=== PATIENT | female | born 1950 | race Caucasian/White ===

== ENCOUNTER 2017-06-17 20:44 | Emergency (ER) | payer OTHER ==
[2017-06-17 20:54] VITALS: BP 150/84; PULSE 82; TEMP 98.7; BMI 42.0
[2017-06-17] MEDS ORDERED: DIPHTH,PERTUSS(ACELL),TET 0.5 ML DISP.SYRIN IM ONE (21:15)
--- NOTE | 2017-06-17 21:22 | PDOC ---
History of Present Illness - General Chief Complaint: Laceration Stated Complaint: LACERATION Time Seen by Provider: 06/17/17 21:15 History Source: Patient Exam Limitations: No Limitations - History of Present Illness Initial Comments: 06/17/17 21:16 67-year-old female brought in for evaluation of laceration to her left third digit. Patient states was at a libertarian try and open up a can when the top of the can cut her finger. Patient states is not up-to-date on tetanus and states the diabetic. Patient has no other complaints at this time. Timing/Duration: reports: just prior to arrival Severity: Yes: mild Location: reports: hands Respiratory Risk Factors: reports: no cause identified Associated Symptoms: reports: other (laceration llefteft 3rd third digitfinger) Past History - Travel Traveled outside of the country in the last 30 days: No Close contact w/someone who was outside of country & ill: No - Past Medical History Allergies/Adverse Reactions: Allergies Allergy/AdvReac Type Severity Reaction Status Date / Time No Known Allergies Allergy Verified 06/17/17 20:54 Other medical history: denies - Immunization History Immunization Up to Date: Yes - Suicide/Smoking/Psychosocial Hx Smoking History: Never smoked Hx Alcohol Use: No Drug/Substance Use Hx: No Patient Lives Alone: No Lives with/in: spouse/SO Review of Systems - Review of Systems Able to Perform ROS?: Yes Constitutional: No: Symptoms Reported Musculoskeletal: No: Symptoms Reported Integumentary: Yes: See HPI Neurological: No: Symptoms reported *Physical Exam - Vital Signs Last Vital Signs Temp Pulse Resp BP Pulse Ox 98.7 F 82 20 150/84 94 L 06/17/17 20:47 06/17/17 20:47 06/17/17 20:47 06/17/17 20:47 06/17/17 20:47 - Physical Exam General Appearance: Yes: Nourished, Appropriately Dressed. No: Apparent Distress Integumentary: positive: Other (noted 1 cm linear laceration over the left third finger at the MCP joint dorsally.) Neurologic: positive: Motor Strength 5/5 (full mobility of left third digit) Procedures - Laceration/Wound Repair Left Finger Wound Length: to 2.5 cm Wound's Depth, Shape: superficial, linear Irrigated w/ Saline: Yes Betadine Prep: Yes Wound Repaired With: Steri-strips, Dermabond Sling Applied: Yes (finger) Medical Decision Making - Medical Decision Making 06/17/17 21:18 Patient laceration to left third digit. Patient had area cleansed with saline Steri-Strips and Dermabond applied. Patient also ordered for tetanus. *DC/Admit/Observation/Transfer Diagnosis at time of Disposition: Laceration of finger of left hand Qualifiers: Encounter type: initial encounter Finger: middle finger Damage to nail status: without damage Foreign body presence: without foreign body Qualified Code(s): S61.213A - Laceration without foreign body of left middle finger without damage to nail, initial encounter; S61.213A - Laceration without foreign body of left middle finger without damage to nail, initial encounter - Discharge Dispostion Disposition: HOME Condition at time of disposition: Good - Patient Instructions Printed Discharge Instructions: DI for Laceration Repair, DI for Laceration Repair With Dermabond Additional Instructions: Keep area clean and dry but check for infection including redness and swelling tomorrow night. If noted please return to the nearest ED as this may require antibiotics. Please allow steristrip and glue to fall off on its own
== END 2017-06-17 21:34 | disposition home or self-care (01) ==
LOC: JERFT 20:44
PROC: 0HQGXZZ Repair Left Hand Skin, External Approach (ICD-10-PCS; principal; 2017-06-17)
DX: S61.213A Laceration without foreign body of left middle finger without damage to nail, initial encounter (principal); W26.8XXA Contact with other sharp object(s), not elsewhere classified, initial encounter; Y93.89 Activity, other specified; Y92.89 Other specified places as the place of occurrence of the external cause; Y99.8 Other external cause status
CPT/HCPCS: 12001-25; 90715; 99281-25

== ENCOUNTER 2017-10-12 17:32 | Emergency (ER) | payer OTHER ==
[2017-10-12 17:38] VITALS: BMI 41.5
[2017-10-12] MEDS ORDERED: ACETAMINOPHEN 325 MG TABLET (FP) PO ONE (17:41)
[2017-10-12] MEDS ORDERED: SODIUM CHLORIDE 1,000 ML IV ONE (17:43)
--- NOTE | 2017-10-12 17:45 | PDOC ---
History of Present Illness - General History Source: Patient Exam Limitations: No Limitations - History of Present Illness Initial Comments: 10/12/17 18:36 The patient is a 67 year old female with a past significant medical with asthma , diabetes, cardiac ablation, and cardiac stents who presents to the emergency department with a subjective fever, productive cough (yellow sputum), sore throat, and ear ache since two days ago. She reports epigastric pain associated with frequent episodes of vomiting. She also states recent contact at home from her who experienced similar symptoms. She states her epigastric pain is 7 out of 10 in severity. She reports coughing only with deep inspiration. She has been unable to keep any food or fluids down. She reports a recent visit to a [facility]. She was given an amoxicillin, prednisone and robitussin with mild alleviation. She states that she has had frequent episodes of vomiting (non-bilious, non-bloody). She denies any shortness of breath, hemoptysis, leg swelling, and lightheadedness. She denies any chest pain, palpitations, headache, and abdominal pain. She reports a flu vaccine this year. <Loree Sepulveda - Last Filed: 10/12/17 20:16> <Froylan Nolan - Last Filed: 10/13/17 16:01> - General Chief Complaint: Cold Symptoms Stated Complaint: cough,fever Time Seen by Provider: 10/12/17 17:41 Past History <Loree Sepulveda - Last Filed: 10/12/17 20:16> - Past Medical History COPD: No Diabetes: Yes HTN: Yes Hypercholesterolemia: Yes - Surgical History Cardiac Surgery: Yes (3stents) Cholecystectomy: Yes - Immunization History Immunization Up to Date: Yes - Suicide/Smoking/Psychosocial Hx Smoking History: Never smoked Hx Alcohol Use: No Drug/Substance Use Hx: No Substance Use Type: None <Froylan Nolan - Last Filed: 10/13/17 16:01> - Past Medical History Allergies/Adverse Reactions: Allergies Allergy/AdvReac Type Severity Reaction Status Date / Time albuterol Allergy Verified 10/12/17 17:33 codeine Allergy Verified 10/12/17 17:33 Home Medications: Ambulatory Orders Amlodipine Besylate [Norvasc -] 5 mg PO DAILY 10/12/17 Aspirin [ASA -] 81 mg PO DAILY 10/12/17 Budesonide/Formeterol Fumarate [SYMBICORT 160/4.5mcg -] 1 inh PO DAILY 10/12/17 Gabapentin [Neurontin] 100 mg PO DAILY 10/12/17 Insulin Degludec [Tresiba Flextouch U-100] 0 unit SQ DAILY 10/12/17 Insulin Lispro [Humalog] 5 unit SQ DAILY 10/12/17 Oseltamivir Phosphate [Tamiflu -] 75 mg PO BID #10 capsule 10/12/17 Ranitidine HCl [Acid Control] 150 mg PO DAILY 10/12/17 Sertraline HCl 50 mg PO DAILY 10/12/17 Simvastatin [Zocor -] 40 mg PO HS 10/12/17 Sitagliptin Phosphate [Januvia] 100 mg PO DAILY 10/12/17 Zolpidem Tartrate [Ambien] 10 mg PO HS 10/12/17 Review of Systems - Review of Systems Able to Perform ROS?: Yes Comments:: 10/12/17 18:45 Constitutional - +chills, fever, generalized weakness HEENT: +sore throat, ear ache, productive cough denies vision changes Respiratory: +productive cough Denies sob, hemoptysis Cardiac: denies chest pain, palpitations, light headedness, leg swelling Abd/GI: +vomiting, denies abd pain, nausea, blood per rectum, melena, diarrhea : denies dysuria, frequency, discharge Musculskelatal - denies back pain, joint swelling skin - denies bruising, erythema, rash neurological: denies headache, numbness, focal weakness, tingling, ataxia, weakness hematologic: denies anemia, easy bruising, easy bleeding All Other Systems: Reviewed and Negative <Loree Sepulveda - Last Filed: 10/12/17 20:16> *Physical Exam - Vital Signs Last Vital Signs Temp Pulse Resp BP Pulse Ox 100.3 F H 124 H 20 135/110 98 10/12/17 17:33 10/12/17 17:33 10/12/17 17:33 10/12/17 17:33 10/12/17 17:33 <Loree Sepulveda - Last Filed: 10/12/17 20:16> - Vital Signs Last Vital Signs Temp Pulse Resp BP Pulse Ox 100.3 F H 124 H 20 135/110 98 10/12/17 17:33 10/12/17 17:33 10/12/17 17:33 10/12/17 17:33 10/12/17 17:33 <Froylan Nolan - Last Filed: 10/13/17 16:01> ED Treatment Course - LABORATORY CBC & Chemistry Diagram: 10/12/17 17:53 10/12/17 17:53 - ADDITIONAL ORDERS Additional order review: Laboratory Results 10/12/17 17:53 Sodium 128 L Potassium 4.1 Chloride 94 L Carbon Dioxide 25 Anion Gap 9 BUN 15 Creatinine 0.9 Creat Clearance w eGFR > 60 Random Glucose 315 H* Calcium 9.1 AST 25 ALT 21 Alkaline Phosphatase 74 Total Protein 8.4 H Albumin 3.5 10/12/17 17:53 RBC 4.98 MCV 85.7 MCHC 34.5 RDW 13.6 MPV 8.7 Neutrophils % 76.1 Lymphocytes % 13.2 Monocytes % 10.1 Eosinophils % 0.1 Basophils % 0.5 - RADIOLOGY Radiograph Interpretation: 10/12/17 20:16 CXR wet read reported by me. No effusions or infiltrates noted. - Medications Given in the ED: ED Medications Discontinued Medications Generic Name Dose Route Start Last Admin Trade Name Freq PRN Reason Stop Dose Admin Acetaminophen 650 mg 10/12/17 17:41 10/12/17 18:10 Tylenol - PO 10/12/17 17:42 Not Given ONCE ONE Acetaminophen 1,000 mg 10/12/17 18:06 10/12/17 18:10 Ofirmev Injection - IVPB 10/12/17 18:07 1,000 mg ONCE ONE Administration Ondansetron HCl 4 mg 10/12/17 18:06 10/12/17 18:10 Zofran Injection IVPB 10/12/17 18:07 4 mg ONCE ONE Administration <Loree Sepulveda - Last Filed: 10/12/17 20:16> - LABORATORY CBC & Chemistry Diagram: 10/12/17 17:53 10/12/17 17:53 - RADIOLOGY Radiology Studies Ordered: Category Date Time Status CHEST X-RAY PORTABLE* [RAD] Stat Radiology 10/12/17 17:42 Ordered <Froylan Nolan - Last Filed: 10/13/17 16:01> Medical Decision Making - Medical Decision Making 10/12/17 18:14 67y F hx of asthma, cAD s/p stents x 3 presents with cough/fever/chills, n/v. Pt went to her PMD yesterday who was given rx for an antibiotiic. Pt endorses nasal congestion/sore throat. She has been not felt significantly imrpoved, endorses some mid epgiastric abdomlilnal pain, chest pain with coughing productive of yellowish sputum w/o hemoptysis. No leg swelling, recent travel. pt endorses vomiting and epigastric pain. also had similar symptoms. HR noted elevated to 120s, suspect due to fever ddx includes flu vs pna will obtain blood work tylenol for fever fluids will reassess A portion of this note was documented by scribe services under my direction. I have reviewed the details of the note, within reason, and agree with the documentation with the following case summary and management plan written by me 10/12/17 19:28 Case signed out to Dr. Mederos to follow-up with results and reassess the patient <Froylan Nolan - Last Filed: 10/13/17 16:01> *DC/Admit/Observation/Transfer - Attestations Scribe Attestion: 10/12/17 18:42 Documentation prepared by Loree Sepulveda, acting as director of medical staff services for Froylan Nolan MD. <Loree Sepulveda - Last Filed: 10/12/17 20:16> <Froylan Nolan - Last Filed: 10/13/17 16:01> Diagnosis at time of Disposition: Acute viral syndrome - Discharge Dispostion Disposition: HOME Condition at time of disposition: Stable - Prescriptions Prescriptions: Oseltamivir Phosphate [Tamiflu -] 75 mg PO BID #10 capsule - Patient Instructions Printed Discharge Instructions: Influenza Additional Instructions: Stop amoxicillin Tamiflu 75 mg twice a day for 5 days Continue to rest/drink plenty of fluids Tylenol as needed for fever/headache/bodyaches Return to ER if you have persistent high fever/difficulty breathing/vomiting Follow-up with your doctor within the next 5-7 days
[2017-10-12] MEDS ORDERED: ONDANSETRON 4 MG/2 ML VIAL ONE (18:05)
[2017-10-12] MEDS ORDERED: ACETAMINOPHEN INJECTION 100 ML IVPB ONE (18:06)
[2017-10-12] MEDS ORDERED: ACETAMINOPHEN 1000 MG/100 ML VIAL (NON FORMULARY) IVPB ONE (18:06)
[2017-10-12] MEDS ORDERED: ONDANSETRON 4 MG/2 ML VIAL IVPB ONE (18:06)
[2017-10-12 18:12] LABS: BASO % 0.5 % (0-2.0); EOS % 0.1 % (0-4.5); HEMATOCRIT 42.7 % (32.4-45.2); HEMOGLOBIN 14.7 GM/dl (10.7-15.3); LYMPH % 13.2 % (8-40); MCH 29.5 pg (25.7-33.7); MCHC 34.5 g/dl (32.0-36.0); MEAN CELL VOLUME 85.7 fl (80-96); MEAN PLT VOLUME 8.7 fl (7.5-11.1); MONO % 10.1 % (3.8-10.2); NEUT % 76.1 % (42.8-82.8); PLATELET COUNT 186 K/MM3 (134-434); RBC 4.98 M/mm3 (3.60-5.2); RDW 13.6 % (11.6-15.6); WHITE BLOOD COUNT 6.6 K/mm3 (4.0-10.8)
[2017-10-12 18:22] LABS: ALBUMIN 3.5 g/dl (3.5-5.0); ALK PHOS 74 U/L (32-92); ANION GAP 9 (8-16); BLOOD UREA NITROGEN 15 mg/dl (7-18); CALCIUM 9.1 mg/dl (8.4-10.2); CHLORIDE 94 mmol/L (98-107); CO2 25 mmol/L (22-28); CREATININE 0.9 mg/dl (0.6-1.3); POTASSIUM 4.1 mmol/L (3.5-5.1); SGOT/AST 25 U/L (10-42); SGPT/ALT 21 U/L (10-40); SODIUM 128 mmol/L (136-145); TOT PROT 8.4 g/dl (6.4-8.3)
[2017-10-12 18:27] LABS: GLUCOSE,RANDOM 315 mg/dl (74-106)
[2017-10-12 18:48] LABS: BILIRUBIN,TOTAL < 0.5 mg/dl (0.2-1.0)
[2017-10-12 19:03] LABS: ACTIVATED PTT 28.7 SECONDS (24.0-38.9)
[2017-10-12 19:08] LABS: INR 1.18 (0.82-1.09); PROTHROMBIN TIME (PATIENT) 13.2 SEC (10.2-13.0)
[2017-10-12 19:13] VITALS: BP 105/65; PULSE 101; TEMP 100.7
--- NOTE | 2017-10-12 20:13 | PDOC ---
*Physical Exam - Vital Signs Last Vital Signs Temp Pulse Resp BP Pulse Ox 100.7 F H 101 H 19 105/65 96 10/12/17 19:12 10/12/17 19:12 10/12/17 19:12 10/12/17 19:12 10/12/17 19:12 ED Treatment Course - LABORATORY CBC & Chemistry Diagram: 10/12/17 17:53 10/12/17 17:53 - ADDITIONAL ORDERS Additional order review: Laboratory Results 10/12/17 10/12/17 10/12/17 18:50 18:36 18:36 PT with INR INR PTT (Actin FS) Sodium Potassium Chloride Carbon Dioxide Anion Gap BUN Creatinine Creat Clearance w eGFR Random Glucose Calcium Total Bilirubin AST ALT Alkaline Phosphatase Creatine Kinase 171 Creatine Kinase Index 0.5 CK-MB (CK-2) 0.9 Troponin I 0.04 Cancelled Total Protein Albumin Lipase 164 10/12/17 10/12/17 18:36 17:53 PT with INR 13.2 H INR 1.18 PTT (Actin FS) 28.7 Sodium 128 L Potassium 4.1 Chloride 94 L Carbon Dioxide 25 Anion Gap 9 BUN 15 Creatinine 0.9 Creat Clearance w eGFR > 60 Random Glucose 315 H* Calcium 9.1 Total Bilirubin < 0.5 AST 25 ALT 21 Alkaline Phosphatase 74 Creatine Kinase Creatine Kinase Index CK-MB (CK-2) Troponin I Total Protein 8.4 H Albumin 3.5 Lipase 10/12/17 17:53 RBC 4.98 MCV 85.7 MCHC 34.5 RDW 13.6 MPV 8.7 Neutrophils % 76.1 Lymphocytes % 13.2 Monocytes % 10.1 Eosinophils % 0.1 Basophils % 0.5 - Medications Given in the ED: ED Medications Discontinued Medications Generic Name Dose Route Start Last Admin Trade Name Freq PRN Reason Stop Dose Admin Acetaminophen 650 mg 10/12/17 17:41 10/12/17 18:10 Tylenol - PO 10/12/17 17:42 Not Given ONCE ONE Acetaminophen 1,000 mg 10/12/17 18:06 10/12/17 18:10 Ofirmev Injection - IVPB 10/12/17 18:07 1,000 mg ONCE ONE Administration Sodium Chloride 1,000 mls @ 1,000 mls/hr 10/12/17 17:43 10/12/17 17:56 Normal Saline - IV 10/12/17 18:42 1,000 mls/hr .Q1H ONE Administration Ondansetron HCl 4 mg 10/12/17 18:06 10/12/17 18:10 Zofran Injection IVPB 10/12/17 18:07 4 mg ONCE ONE Administration Progress Note - Progress Note Progress Note: Care of this patient received from . The patient has had a 2 day history of sore throat/headache/subjective fever/ nonproductive cough. She has had close contact (family members) who have had influenza within the last week. Chest x-ray shows no clear evidence of infiltrate or other acute process Laboratory evaluation shows no elevation of the white blood cell count; the rest of the laboratory evaluation shows moderate elevation of random glucose value but otherwise essentially unremarkable. Urinalysis shows no clear evidence of UTI. Clinical presentation most consistent with influenza. The patient will be started on Tamiflu 75 mg twice a day for 5 days. The first dose will be given here in the emergency room. Patient should continue drinking plenty of fluids and resting. She had been prescribed amoxicillin previously which she should discontinue. She should return to the emergency room if she has persistent high fever, vomiting or difficulty breathing *DC/Admit/Observation/Transfer Diagnosis at time of Disposition: Acute viral syndrome - Discharge Dispostion Disposition: HOME Condition at time of disposition: Stable - Prescriptions Prescriptions: Oseltamivir Phosphate [Tamiflu -] 75 mg PO BID #10 capsule - Referrals - Patient Instructions Printed Discharge Instructions: Influenza Additional Instructions: Stop amoxicillin Tamiflu 75 mg twice a day for 5 days Continue to rest/drink plenty of fluids Tylenol as needed for fever/headache/bodyaches Return to ER if you have persistent high fever/difficulty breathing/vomiting Follow-up with your doctor within the next 5-7 days - Post Discharge Activity
[2017-10-12] MEDS ORDERED: OSELTAMIVIR PHOSPHATE 75 MG CAPSULE PO ONE (20:20)
[2017-10-12] MEDS ORDERED: OSELTAMIVIR PHOSPHATE 75 MG CAPSULE ONE (20:28)
[2017-10-12 20:36] LABS: PH,URINE 5.5 (4.5-8); URINE APPEARANCE Clear; URINE BILIRUBIN Negative (NEGATIVE); URINE BLOOD Trace-intact (NEGATIVE); URINE COLOR YELLOW; URINE GLUCOSE (UA) 2+ (NEGATIVE); URINE KETONE Negative (NEGATIVE); URINE LEUK ESTERASE Negative (NEGATIVE); URINE NITRITE Negative (NEGATIVE); URINE PROTEIN 1+ (NEGATIVE); URINE UROBILINOGEN 0.2 (0.2-1.0)
[2017-10-12 22:11] LABS: URINE BACTERIA FEW /hpf (NEGATIVE); URINE WBC 0-2 (0-5)
--- NOTE | 2017-10-15 08:14 | EKG ---
Test Reason : Blood Pressure : / mmHG Vent. Rate : 120 BPM Atrial Rate : 120 BPM P-R Int : 164 ms QRS Dur : 068 ms QT Int : 316 ms P-R-T Axes : 051 005 030 degrees QTc Int : 446 ms SINUS TACHYCARDIA LOW VOLTAGE QRS CANNOT RULE OUT SEPTAL INFARCT , AGE UNDETERMINED ABNORMAL ECG NO PREVIOUS ECGS AVAILABLE Confirmed by SARAN VALENTIN MD ([id number]) on 10/15/2017 8:14:38 AM Referred By: MD RUIZ Confirmed By:SARAN VALENTIN MD
== END 2017-10-12 20:33 | disposition home or self-care (01) ==
LOC: FER 17:32
PROC: 3E033NZ Introduction of Analgesics, Hypnotics, Sedatives into Peripheral Vein, Percutaneous Approach (ICD-10-PCS; principal; 2017-10-12)
PROC: 3E033GC Introduction of Other Therapeutic Substance into Peripheral Vein, Percutaneous Approach (ICD-10-PCS; 2017-10-12)
PROC: 3E0337Z Introduction of Electrolytic and Water Balance Substance into Peripheral Vein, Percutaneous Approach (ICD-10-PCS; 2017-10-12)
DX: B34.9 Viral infection, unspecified (principal); J45.909 Unspecified asthma, uncomplicated; E11.9 Type 2 diabetes mellitus without complications; Z95.5 Presence of coronary angioplasty implant and graft; I10 Essential (primary) hypertension; E78.00 Pure hypercholesterolemia, unspecified; Z79.4 Long term (current) use of insulin
CPT/HCPCS: 36415; 71045-TC-FY; 80053; 81003; 81015; 82550; 82553; 83605; 83690; 84484; 85025; 85610; 85730; 87040; 87086; 87186; 93005; 96361; 96374; 96375; 99284-25

== ENCOUNTER 2017-10-13 19:06 | Observation (INO) | payer OTHER ==
[2017-10-13 19:21] VITALS: BMI 40.1
--- NOTE | 2017-10-13 19:32 | PDOC ---
History of Present Illness - General History Source: Patient Exam Limitations: No Limitations - History of Present Illness Initial Comments: 10/13/17 20:34 The patient is a 67 year old female with a significant PMH of asthma, IDDM, cardiac ablation, HTN, and HLD who presents to the emergency department with subjective fever, cough productive of blood streaked yellow sputum, and generalized body aches for the past two days. The patient reports she was seen at [facility] two days ago and was discharged on amoxicillin. The patient states she took the amoxicillin two days ago but stopped after experiencing multiple episodes of non-bloody, non-bilious vomit and headaches. The patient notes was seen yesterday at [facility], given fluids, had blood work that showed bacteremia and was told to come to the ER today for further evaluation. The patient states she took Tylenol last night with minimal relief of her symptoms. The patient denies chest pain, shortness of breath, and dizziness. Denies chills, vomit, diarrhea and constipation. Denies dysuria, frequency, urgency and hematuria. Allergies: albuterol, codeine Past surgical history: Cholecystectomy, hysterectomy, 3 stents placed. Social history: No reported alcohol, drug, or cigarette use. <Karolyn Burns - Last Filed: 10/13/17 23:30> <Shelby Wilburn - Last Filed: 10/15/17 03:11> - General Chief Complaint: Revisit, Lab Variance Stated Complaint: PCP ADMIT Time Seen by Provider: 10/13/17 19:31 Past History <Karolyn Burns - Last Filed: 10/13/17 23:30> - Past Medical History COPD: No Diabetes: Yes HTN: Yes Hypercholesterolemia: Yes - Surgical History Cardiac Surgery: Yes (3stents) Cholecystectomy: Yes - Immunization History Immunization Up to Date: Yes - Suicide/Smoking/Psychosocial Hx Smoking History: Never smoked Have you smoked in the past 12 months: No Information on smoking cessation initiated: No Hx Alcohol Use: No Drug/Substance Use Hx: No Substance Use Type: None <Shelby Wilburn - Last Filed: 10/15/17 03:11> - Past Medical History Allergies/Adverse Reactions: Allergies Allergy/AdvReac Type Severity Reaction Status Date / Time albuterol Allergy Verified 10/13/17 19:18 codeine Allergy Verified 10/13/17 19:18 Home Medications: Ambulatory Orders Amlodipine Besylate [Norvasc -] 5 mg PO DAILY 10/12/17 Aspirin [ASA -] 81 mg PO DAILY 10/12/17 Budesonide/Formeterol Fumarate [SYMBICORT 160/4.5mcg -] 1 inh PO DAILY 10/12/17 Insulin Degludec [Tresiba Flextouch U-100] 50 unit SQ HS 10/12/17 Insulin Lispro [Humalog] 5 unit SQ ASDIR 10/12/17 Oseltamivir Phosphate [Tamiflu -] 75 mg PO BID #10 capsule 10/12/17 Ranitidine HCl [Acid Control] 150 mg PO DAILY 10/12/17 Sertraline HCl 50 mg PO DAILY 10/12/17 Simvastatin [Zocor -] 40 mg PO HS 10/12/17 Sitagliptin Phosphate [Januvia] 100 mg PO DAILY 10/12/17 Zolpidem Tartrate [Ambien] 10 mg PO HS 10/12/17 Albuterol Sulfate [Proair Respiclick] 90 mcg IH Q6H PRN 10/14/17 Glimepiride [Amaryl] 4 mg PO DAILY 10/14/17 Review of Systems - Review of Systems Able to Perform ROS?: Yes Comments:: 10/13/17 20:37 GENERAL/CONSTITUTIONAL: (+) Fever. (+)Generalized body aches. No chills. HEAD, EYES, EARS, NOSE AND THROAT: No change in vision. No ear pain or discharge. No sore throat. CARDIOVASCULAR: No chest pain or shortness of breath. RESPIRATORY: (+) Cough productive of blood streaked yellow sputum. No wheezing or hemoptysis. GASTROINTESTINAL: No nausea, vomiting, diarrhea or constipation. GENITOURINARY: No dysuria, frequency, or change in urination. MUSCULOSKELETAL: No joint or muscle swelling or pain. No neck or back pain. SKIN: No rash NEUROLOGIC: No headache, vertigo, loss of consciousness, or change in strength/ sensation. ENDOCRINE: No increased thirst. No abnormal weight change. HEMATOLOGIC/LYMPHATIC: No anemia, easy bleeding, or history of blood clots. ALLERGIC/IMMUNOLOGIC: No hives or skin allergy. <Karolyn Burns - Last Filed: 10/13/17 23:30> *Physical Exam - Vital Signs Last Vital Signs Temp Pulse Resp BP Pulse Ox 99.3 F 98 H 20 121/67 94 L 10/13/17 19:18 10/13/17 19:18 10/13/17 19:18 10/13/17 19:18 10/13/17 19:18 - Physical Exam Comments: 10/13/17 20:41 GENERAL: Awake, alert, and fully oriented, in no acute distress HEAD: No signs of trauma EYES: PERRLA, EOMI, sclera anicteric, conjunctiva clear ENT: (+) Erythematous throat. Auricles normal inspection, hearing grossly normal , nares patent, oropharynx clear without exudates. Moist mucosa NECK: Normal ROM, supple, no lymphadenopathy, JVD, or masses LUNGS: (+) Coarse breath sounds. No wheezes, and no crackles HEART: Regular rate and rhythm, normal S1 and S2, no murmurs, rubs or gallops ABDOMEN: Soft, nontender, normoactive bowel sounds. No guarding, no rebound. No masses EXTREMITIES: Normal range of motion, no edema. No clubbing or cyanosis. No cords, erythema, or tenderness NEUROLOGICAL: Cranial nerves II through XII grossly intact. Normal speech, normal gait SKIN: Warm, Dry, normal turgor, no rashes or lesions noted. <Kraolyn Burns - Last Filed: 10/13/17 23:30> - Vital Signs Last Vital Signs Temp Pulse Resp BP Pulse Ox 99.3 F 98 H 20 121/67 94 L 10/13/17 19:18 10/13/17 19:18 10/13/17 19:18 10/13/17 19:18 10/13/17 19:18 <Shelby Wilburn - Last Filed: 10/15/17 03:11> Heart Score/ECG Review #1 10/13/17 23:13 EKG performed at [20:24] demonstrates rate of [98], rhythm of [Normal Sinus Rhythm]. <Karolyn Burns - Last Filed: 10/13/17 23:30> ED Treatment Course - LABORATORY CBC & Chemistry Diagram: 10/13/17 20:20 10/13/17 20:20 - ADDITIONAL ORDERS Additional order review: 10/13/17 20:20 RBC 4.83 MCV 88.0 MCHC 33.4 RDW 14.3 MPV 8.6 Neutrophils % 49.1 Lymphocytes % 33.0 Monocytes % 16.7 H Eosinophils % 0.2 Basophils % 1.0 - Medications Given in the ED: ED Medications Discontinued Medications Generic Name Dose Route Start Last Admin Trade Name Alon PRN Reason Stop Dose Admin Sodium Chloride 500 ml 10/13/17 19:34 10/13/17 20:25 Normal Saline - IV 10/13/17 19:35 500 ml ONCE ONE Administration <Karolyn Burns - Last Filed: 10/13/17 23:30> - LABORATORY CBC & Chemistry Diagram: 10/14/17 06:00 10/14/17 21:53 <Shelby Wilburn - Last Filed: 10/15/17 03:11> Medical Decision Making - Medical Decision Making 10/15/17 03:06 Pt was asked to return to the ER today, as she had a positive blood culture in the hospital at [facility] and she was called at home and told to go to the ER at [facility]. Pt comes was told at a clinic 2 days ago that she has an infection and she was given amoxicillin (sulbactam?) Pt took one and then she felt unwell so she went to [facility] yesterday. There the doctor guessed that she had flu, so he started her on Tamiflu. Pt comes now and we repeated labs. CXR normal. Positive troponin,m so she will be admitted. <Shelby Wilburn - Last Filed: 10/15/17 03:11> *DC/Admit/Observation/Transfer - Attestations Scribe Attestion: 10/13/17 20:42 Documentation prepared by Karolyn Burns, acting as pesticide use medical coordinator for Shelby Wilburn MD. <Karolyn Burns - Last Filed: 10/13/17 23:30> - Discharge Dispostion Admit: Yes <Shelby Wilburn - Last Filed: 10/15/17 03:11> Diagnosis at time of Disposition: Elevated troponin, Hypoxemia - Discharge Dispostion Condition at time of disposition: Stable
[2017-10-13] MEDS ORDERED: SODIUM CHLORIDE 0.9% 500 ML INFUS.BAG IV ONE (19:34)
[2017-10-13 20:30] LABS: EOS % 0.2 % (0-4.5); HEMATOCRIT 42.5 % (32.4-45.2); HEMOGLOBIN 14.2 GM/dL (10.7-15.3); MCH 29.4 pg (25.7-33.7); MCHC 33.4 g/dl (32.0-36.0); MEAN PLT VOLUME 8.6 fl (7.5-11.1); MONO % 16.7 % (3.8-10.2); NEUT % 49.1 % (42.8-82.8); PLATELET COUNT 173 K/MM3 (134-434); RBC 4.83 M/mm3 (3.60-5.2); RDW 14.3 % (11.6-15.6); WHITE BLOOD COUNT 4.7 K/mm3 (4.0-10.0)
[2017-10-13 20:55] LABS: ALBUMIN 3.3 g/dl (3.4-5.0); ANION GAP 9 (8-16); BILIRUBIN,TOTAL 0.5 mg/dL (0.2-1.0); BLOOD UREA NITROGEN 11 mg/dL (7-18); CALCIUM 8.4 mg/dL (8.5-10.1); CHLORIDE 98 mmol/L (98-107); CO2 24 mmol/L (21-32); GLUCOSE,RANDOM 300 mg/dL (74-106); SGOT/AST 27 U/L (15-37); SGPT/ALT 23 U/L (12-78); SODIUM 131 mmol/L (136-145); TOT PROT 8.2 g/dl (6.4-8.2)
[2017-10-13 20:57] LABS: ALK PHOS 81 U/L (45-117)
[2017-10-13] MEDS ORDERED: ASPIRIN 81 MG CHEWABLE TABLETS PO ONE (21:14)
[2017-10-13] MEDS ORDERED: ASPIRIN 81 MG CHEWABLE TABLETS ONE (21:17)
[2017-10-13 21:25] LABS: URINE APPEARANCE CLEAR; URINE BILIRUBIN NEGATIVE (NEGATIVE); URINE BLOOD NEGATIVE (NEGATIVE); URINE COLOR YELLOW; URINE GLUCOSE (UA) 3+ (NEGATIVE); URINE KETONE NEGATIVE (NEGATIVE); URINE LEUK ESTERASE NEGATIVE (NEGATIVE); URINE NITRITE NEGATIVE (NEGATIVE); URINE UROBILINOGEN NEGATIVE mg/dL (0.2-1.0)
[2017-10-13 21:37] LABS: URINE PROTEIN 1+ (NEGATIVE)
[2017-10-13 21:39] LABS: EPI CELLS RARE /HPF (FEW); URINE MUCUS RARE
[2017-10-14] MEDS: ZOLPIDEM TARTRATE 5 MG TABLET PO PRN ×2 (01:23→22:42)
--- NOTE | 2017-10-14 01:47 | HP ---
CHIEF COMPLAINT: fever, cough, muscle pain PCP: Dr Tra Torres HISTORY OF PRESENT ILLNESS: The pt is a 67 year old female with a PMH of asthma, CAD, s/p 3 stents, last one two years ago, cardiac ablation 2010, HTN, HLD who presented to the hospital complaining of fever, chills, cough, muscle pain that started three days ago (on Sunday). She went to [facility] where she was prescribed Amoxicillin. She developed nausea and vomiting and had to stopped taking that. Yesterday she went to [facility] ED where she was diagnosed with flu and given tamiflu. The pt was asked to come to ED today after obtaining positive results of her blood cultures from [place] visit. She is feeling better today. She is still complaining of cough, bringing up yellow sputum, fever, sore throat. The pt reports chest pain that is associated with coughing and constipation that is chronic. She denies palpitations, dizziness, weakness, dysuria. She states that recently many family members had flu. She is compliant with visiting her PCP and taking medications. ER course was notable for: (1)troponins (2)CXR in [facility], CT chest (3)EKG PAST MEDICAL HISTORY: as above PAST SURGICAL HISTORY: cholecystectomy, hysterectomy, 3 stents Social History: Smoking:no Alcohol:no Drugs:no Family History: Mother:DM, [place] Father; N/A Siblings; all 8 of them have heart disease Allergies albuterol Allergy (Verified 10/13/17 19:18) codeine Allergy (Verified 10/13/17 19:18) HOME MEDICATIONS: Home Medications Medication Instructions Recorded Amlodipine Besylate [Norvasc -] 5 mg PO DAILY 10/12/17 Aspirin [ASA -] 81 mg PO DAILY 10/12/17 Budesonide/Formeterol Fumarate 1 inh PO DAILY 10/12/17 [SYMBICORT 160/4.5mcg -] Gabapentin [Neurontin] 100 mg PO DAILY 10/12/17 Insulin Degludec [Tresiba 0 unit SQ DAILY 10/12/17 Flextouch U-100] Insulin Lispro [Humalog] 5 unit SQ DAILY 10/12/17 Oseltamivir Phosphate [Tamiflu -] 75 mg PO BID #10 capsule 10/12/17 Ranitidine HCl [Acid Control] 150 mg PO DAILY 10/12/17 Sertraline HCl 50 mg PO DAILY 10/12/17 Simvastatin [Zocor -] 40 mg PO HS 10/12/17 Sitagliptin Phosphate [Januvia] 100 mg PO DAILY 10/12/17 Zolpidem Tartrate [Ambien] 10 mg PO HS 10/12/17 REVIEW OF SYSTEMS CONSTITUTIONAL: generalized weakness, malaise, fever, chills Absent: diaphoresis, loss of appetite, weight change HEENT: rhinorrhea, nasal congestion, throat pain, throat swelling, difficulty swallowing,, right ear pain and ringing-not new Absent: mouth swelling, ear pain, eye pain, visual changes CARDIOVASCULAR: chest pain with coughing Absent: syncope, palpitations, irregular heart rate, lightheadedness, peripheral edema RESPIRATORY: wheezing, cough Absent: shortness of breath, dyspnea with exertion, orthopnea, stridor, hemoptysis GASTROINTESTINAL:constipation Absent: abdominal pain, abdominal distension, nausea, vomiting, diarrhea, GENITOURINARY: Absent: dysuria, frequency, urgency, hesitancy, hematuria, flank pain, genital pain MUSCULOSKELETAL: Absent: myalgia, arthralgia, joint swelling, back pain, neck pain SKIN: Absent: rash, itching, pallor ENDOCRINE: Absent: unexplained weight gain, unexplained weight loss, heat intolerance, cold intolerance NEUROLOGIC: Absent: headache, focal weakness or paresthesias, dizziness, unsteady gait, seizure, mental status changes, bladder or bowel incontinence PSYCHIATRIC: Absent: anxiety, depression PHYSICAL EXAMINATION Vital Signs - 24 hr 10/13/17 10/14/17 10/14/17 19:18 01:12 01:19 Temperature 99.3 F 99.2 F Pulse Rate 98 H 87 Respiratory 20 20 20 Rate Blood Pressure 121/67 120/70 O2 Sat by Pulse 94 L 95 95 Oximetry (%) GENERAL: Awake, alert, and fully oriented, in no acute distress. HEAD: Normal with no signs of trauma. EYES: Pupils equal, round and reactive to light, extraocular movements intact, sclera anicteric, conjunctiva clear. No lid lag. EARS, NOSE, THROAT: Ears normal, nares patent, oropharynx clear without exudates. Moist mucous membranes. NECK: Normal range of motion, supple without lymphadenopathy, JVD, or masses. LUNGS: Breath sounds equal, clear to auscultation bilaterally. No wheezes, and no crackles. No accessory muscle use. HEART: Regular rate and rhythm, normal S1 and S2 without murmur, rub or gallop. ABDOMEN: Soft, nontender, not distended, normoactive bowel sounds, no guarding, no rebound, no masses. No hepatomegaly or splenomegaly. MUSCULOSKELETAL: Normal range of motion at all joints. No bony deformities or tenderness. No CVA tenderness. UPPER EXTREMITIES: 2+ pulses, warm, well-perfused. No cyanosis. No clubbing. No peripheral edema. LOWER EXTREMITIES: 2+ pulses, warm, well-perfused. No calf tenderness. No peripheral edema. NEUROLOGICAL: Cranial nerves II-XII intact. Normal speech. Normal gait. PSYCHIATRIC: Cooperative. Good eye contact. Appropriate mood and affect. SKIN: Warm, dry, normal turgor, no rashes or lesions noted, normal capillary refill. Laboratory Results - last 24 hr 10/13/17 10/13/17 10/13/17 20:20 20:20 20:20 WBC 4.7 RBC 4.83 Hgb 14.2 Hct 42.5 MCV 88.0 MCH 29.4 MCHC 33.4 RDW 14.3 Plt Count 173 MPV 8.6 Neutrophils % 49.1 Lymphocytes % 33.0 Monocytes % 16.7 H Eosinophils % 0.2 Basophils % 1.0 Sodium 131 L Potassium 4.0 Chloride 98 Carbon Dioxide 24 Anion Gap 9 BUN 11 Creatinine 1.0 Creat Clearance w eGFR 55.30 Random Glucose 300 H Calcium 8.4 L Total Bilirubin 0.5 AST 27 ALT 23 Alkaline Phosphatase 81 Creatine Kinase 247 H Creatine Kinase Index 0.4 CK-MB (CK-2) < 1.000 Troponin I 0.09 H B-Natriuretic Peptide Total Protein 8.2 Albumin 3.3 L Urine Color Urine Appearance Urine pH Ur Specific [place] Urine Protein Urine Glucose (UA) Urine Ketones Urine Blood Urine Nitrite Urine Bilirubin Urine Urobilinogen Ur Leukocyte Esterase Urine WBC (Auto) Urine RBC (Auto) Ur Epithelial Cells Urine Mucus Acetone, Qual Negative L 10/13/17 10/13/17 20:20 21:13 WBC RBC Hgb Hct MCV MCH MCHC RDW Plt Count MPV Neutrophils % Lymphocytes % Monocytes % Eosinophils % Basophils % Sodium Potassium Chloride Carbon Dioxide Anion Gap BUN Creatinine Creat Clearance w eGFR Random Glucose Calcium Total Bilirubin AST ALT Alkaline Phosphatase Creatine Kinase Creatine Kinase Index CK-MB (CK-2) Troponin I B-Natriuretic Peptide 176.57 H Total Protein Albumin Urine Color Yellow Urine Appearance Clear Urine pH 6.0 Ur Specific [place] 1.025 Urine Protein 1+ H Urine Glucose (UA) 3+ H Urine Ketones Negative Urine Blood Negative Urine Nitrite Negative Urine Bilirubin Negative Urine Urobilinogen Negative Ur Leukocyte Esterase Negative Urine WBC (Auto) 1 Urine RBC (Auto) None Ur Epithelial Cells Rare Urine Mucus Rare Acetone, Qual ASSESSMENT/PLAN: The pt is a 67 year old female with a PMH of asthma, CAD, s/p 3 stents, last one two years ago, cardiac ablation 2010, HTN, HLD who presented to the hospital complaining of fever, chills, cough, muscle pain that started three days ago. She is placed on observation in telemetry for elevated troponins and URI. Upper respiratory infection/Influenza -highly likely due to symptoms, multiple sick contacts but also other resp viruses -continue tamiflu -reviewed CT chest-no PNA, waiting for official report -CXR reviewed -no more fevers in the hospital, no elevation of WBC -continue droplet precautions Possible bacteremia; -preliminary result of blood culture;pending organism, likely due to contamination -ordered another blood culture -Vancomycin 1500 mg ONCE ordered Elevated troponin: 0.09 EKG-no rico/std, T wave abnormalities -low risk for ACS -her Junior Media Buyer is Dr Abel Lau in [place], , she states that her ECHO was normal, recently done -f/u troponins -cardiac monitoring on telemetry -f/u EKG in AM -Oxygen supplementation -chest pain only when coughing -ASA given in ED, will continue Asthma; -she has expiratory wheezing on PE -pt is allergic to Albuterol, only taking Symbicort and some inhaler that she doesn't remember -will give Atrovent HTN: -stable -resumed home medication: Norvasc DMII: -HgA1c ordered -ISS ACHS -BGM ACHS -Levemir 10 u HS ordered -please confirm her medications F/E/N: no/no changes/diabetic DVT PPX: -Heparin SQ TID Disp: tele observation. Please confirm her medications with pharmacy. She has stickers with medication names that is not complete. Problem List - Problem (1) Hypertension Code(s): I10 - ESSENTIAL (PRIMARY) HYPERTENSION (2) CAD (coronary artery disease) Code(s): I25.10 - ATHSCL HEART DISEASE OF [place] CORONARY ARTERY W/O ANG PCTRS (3) Elevated troponin Code(s): R74.8 - ABNORMAL LEVELS OF OTHER SERUM ENZYMES (4) Acute viral syndrome Code(s): B34.9 - VIRAL INFECTION, UNSPECIFIED Visit type - Emergency Visit Emergency Visit: Yes ED Registration Date: 10/13/17 Care time: The patient presented to the Emergency Department on the above date and was hospitalized for further evaluation of their emergent condition. - New Patient This patient is new to me today: Yes Date on this admission: 10/14/17 - Critical Care Critical Care patient: No Hospitalist Screening - Colonoscopy Questionnaire Colonoscopy Questionnaire: Colonoscopy Questionnaire - Patient: 50 - 75 years old and never had a screening colonoscopy: No History of colon or rectal polyps, or CA: No History of IBD, Crohn's disease or UC: No History of abdominal radiation therapy as a child: No - Relative: 1 with colon or rectal CA, or polyps at age 60 or younger: No Colon or rectal CA diagnosed at age 45 or younger: No Multiple relatives with colon or rectal CA: No - Outcome: Screening Result: Negative Screen
[2017-10-14] MEDS ORDERED: VANCOMYCIN 1,500 MG in DEXTROSE 5%-WATER - 500 ML IVPB ONE (01:54)
--- NOTE | 2017-10-14 02:59 | PN ---
Teaching Attending Note Name of Resident: Trinidad Romero ATTENDING PHYSICIAN STATEMENT I saw and evaluated the patient. Chart, data, imaging reviewed. I reviewed the resident's note and discussed the case with the resident. I agree with the resident's findings and plan as documented. SUBJECTIVE: 67 year old female with asthma, IDDM, s/p cardiac ablation, HTN, and HLD seen in [place] for muscle aches, chills, fevers, started to be treated empirically for influenza with Tamiflu. Was recalled back to ER after 1/2 sets of blood cultures grew gram pos cocci in clusters. In [facility] ER -c/o cough. Patient was found to to have mildly elevated troponin. Denied any significant SOB, and mild pleuritic chest pain. OBJECTIVE: Last Vital Signs Temp Pulse Resp BP Pulse Ox 99.2 F 87 20 120/70 95 10/14/17 01:12 10/14/17 01:12 10/14/17 01:19 10/14/17 01:12 10/14/17 01:19 General- NAD, AAox3 HEENT -moist mucous membranes Neck -no JVD appreciated CV -s1+s2+ RRR Chest scant wheezing appreciated in b/l lung mendoza along with bronchial breath sounds Abdomen -obese, soft, nt, BS+ Ext - no pedal edema Abnormal Lab Results 10/13/17 10/13/17 10/13/17 20:20 20:20 20:20 Monocytes % 16.7 H Sodium 131 L Random Glucose 300 H Calcium 8.4 L Creatine Kinase 247 H Troponin I 0.09 H B-Natriuretic Peptide Albumin 3.3 L Urine Protein Urine Glucose (UA) Acetone, Qual Negative L 10/13/17 10/13/17 20:20 21:13 Monocytes % Sodium Random Glucose Calcium Creatine Kinase Troponin I B-Natriuretic Peptide 176.57 H Albumin Urine Protein 1+ H Urine Glucose (UA) 3+ H Acetone, Qual EKG- NSR Chest CT- no infiltrates noted ASSESSMENT AND PLAN: #67yo woman with 1/2 blood cultures + for gram positive cocci in clusters from which may represent contamination. Cannot r/o significant bacteremia at this time. -repeat blood cultures x2 -vancomycin 1g Iv q12hrs pending blood cx identification and sensitivities #R/o ACS- unlikely ACS as trop is mildly elevated and clinically does not appear to have significant chest pain or SOB -ASA -trend troponin -statin -consider cardiac stress test #Suspected influenza- no evidence of pneumonia on CT of chest -flu swab -tamiflu 75mg po bid #continue home meds for chronic medical problems DVT -heparin sc Diet- diabetic, low Na diet
[2017-10-14] MEDS ORDERED: ATORVASTATIN CA 40 MG TABLET (FP) PO ONE (03:31)
[2017-10-14] MEDS ORDERED: PT OWN MED DRAWER 7, Y5N ONE (03:51)
[2017-10-14] MEDS: INSULIN SLIDING SCALE (NOVOLOG) 1 VIAL SQ SCH ×4 (04:06→15:33)
[2017-10-14] MEDS: HEPARIN NA (PORCINE) 5,000 UNITS/ML 1ML VIAL SQ SCH ×3 (05:41→22:00)
[2017-10-14 06:25] LABS: BASO % 0.7 % (0-2.0); EOS % 0.4 % (0-4.5); HEMATOCRIT 37.4 % (32.4-45.2); HEMOGLOBIN 12.5 GM/dL (10.7-15.3); LYMPH % 42.9 % (8-40); MCH 29.3 pg (25.7-33.7); MCHC 33.3 g/dl (32.0-36.0); MEAN PLT VOLUME 8.7 fl (7.5-11.1); MONO % 16.5 % (3.8-10.2); NEUT % 39.5 % (42.8-82.8); PLATELET COUNT 144 K/MM3 (134-434); RBC 4.25 M/mm3 (3.60-5.2); RDW 14.2 % (11.6-15.6)
[2017-10-14 06:49] LABS: CHLORIDE 99 mmol/L (98-107); POTASSIUM 3.8 mmol/L (3.5-5.1); SODIUM 134 mmol/L (136-145)
[2017-10-14 06:56] LABS: ANION GAP 7 (8-16); BLOOD UREA NITROGEN 11 mg/dL (7-18); CHOLESTEROL 139 mg/dL (50-200); CO2 28 mmol/L (21-32); CREATININE 0.8 mg/dL (0.55-1.02); GLUCOSE,RANDOM 295 mg/dL (74-106); HDL CHOLESTEROL 35 mg/dL (40-60); LDL CHOLESTEROL (ONLY SJRH) 76 mg/dL (5-100); MAGNESIUM 1.7 mg/dL (1.8-2.4); PHOSPHOROUS 3.8 mg/dL (2.5-4.9); TRIGLYCERIDES 166 mg/dL (35-160)
[2017-10-14] MEDS ORDERED: INSULIN SLIDING SCALE (NOVOLOG) 1 VIAL SQ SCH (07:00)
[2017-10-14] MEDS ORDERED: GABAPENTIN 100 MG CAPSULE (FP) PO SCH (10:00)
[2017-10-14] MEDS: RANITIDINE HCL 150 MG TABLET (FP) PO SCH (10:43)
[2017-10-14] MEDS: amLODIPine BESYLATE 5 MG TABLET (FP) PO SCH (10:43)
[2017-10-14] MEDS: ASPIRIN 81 MG CHEWABLE TABLETS PO SCH (10:43)
[2017-10-14] MEDS: SERTRALINE HCL 50 MG TABLET (FP) PO SCH (10:43)
[2017-10-14] MEDS: OSELTAMIVIR PHOSPHATE 75 MG CAPSULE PO SCH ×2 (10:44→22:00)
[2017-10-14] MEDS: BUDESONIDE/FORMETEROL FUMARATE 160/4.5 mcg INHALER IH SCH ×2 (10:44→22:01)
[2017-10-14] MEDS ORDERED: predniSONE 20 MG TABLET (UD) PO ONE (14:49)
--- NOTE | 2017-10-14 15:02 | PN ---
Progress Note (short form) - Note Progress Note: Subjective: no cp , no SOB, has cough and yellow sputum production . no fever Objective: Vital Signs: Last Vital Signs Temp Pulse Resp BP Pulse Ox 97.9 F 90 17 118/65 95 10/14/17 10:50 10/14/17 10:50 10/14/17 10:50 10/14/17 10:50 10/14/17 01:19 Laboratory Results - last 24 hr 10/13/17 10/13/17 10/13/17 20:20 20:20 20:20 WBC 4.7 RBC 4.83 Hgb 14.2 Hct 42.5 MCV 88.0 MCH 29.4 MCHC 33.4 RDW 14.3 Plt Count 173 MPV 8.6 Neutrophils % 49.1 Lymphocytes % 33.0 Monocytes % 16.7 H Eosinophils % 0.2 Basophils % 1.0 Sodium 131 L Potassium 4.0 Chloride 98 Carbon Dioxide 24 Anion Gap 9 BUN 11 Creatinine 1.0 Creat Clearance w eGFR 55.30 POC Glucometer Random Glucose 300 H Hemoglobin A1c % Calcium 8.4 L Phosphorus Magnesium Total Bilirubin 0.5 AST 27 ALT 23 Alkaline Phosphatase 81 Creatine Kinase 247 H Creatine Kinase Index 0.4 CK-MB (CK-2) < 1.000 Troponin I 0.09 H B-Natriuretic Peptide Total Protein 8.2 Albumin 3.3 L Triglycerides Cholesterol Total LDL Cholesterol HDL Cholesterol Urine Color Urine Appearance Urine pH Ur Specific [place] Urine Protein Urine Glucose (UA) Urine Ketones Urine Blood Urine Nitrite Urine Bilirubin Urine Urobilinogen Ur Leukocyte Esterase Urine WBC (Auto) Urine RBC (Auto) Ur Epithelial Cells Urine Mucus Acetone, Qual Negative L 10/13/17 10/13/17 10/14/17 20:20 21:13 02:37 WBC RBC Hgb Hct MCV MCH MCHC RDW Plt Count MPV Neutrophils % Lymphocytes % Monocytes % Eosinophils % Basophils % Sodium Potassium Chloride Carbon Dioxide Anion Gap BUN Creatinine Creat Clearance w eGFR POC Glucometer Random Glucose Hemoglobin A1c % Calcium Phosphorus Magnesium Total Bilirubin AST ALT Alkaline Phosphatase Creatine Kinase Creatine Kinase Index CK-MB (CK-2) Troponin I Cancelled B-Natriuretic Peptide 176.57 H Total Protein Albumin Triglycerides Cholesterol Total LDL Cholesterol HDL Cholesterol Urine Color Yellow Urine Appearance Clear Urine pH 6.0 Ur Specific [place] 1.025 Urine Protein 1+ H Urine Glucose (UA) 3+ H Urine Ketones Negative Urine Blood Negative Urine Nitrite Negative Urine Bilirubin Negative Urine Urobilinogen Negative Ur Leukocyte Esterase Negative Urine WBC (Auto) 1 Urine RBC (Auto) None Ur Epithelial Cells Rare Urine Mucus Rare Acetone, Qual 10/14/17 10/14/17 10/14/17 02:37 03:58 05:38 WBC RBC Hgb Hct MCV MCH MCHC RDW Plt Count MPV Neutrophils % Lymphocytes % Monocytes % Eosinophils % Basophils % Sodium Potassium Chloride Carbon Dioxide Anion Gap BUN Creatinine Creat Clearance w eGFR POC Glucometer [phone] Random Glucose Hemoglobin A1c % Calcium Phosphorus Magnesium Total Bilirubin AST ALT Alkaline Phosphatase Creatine Kinase 187 Creatine Kinase Index 0.6 CK-MB (CK-2) 1.295 Troponin I 0.08 H B-Natriuretic Peptide Total Protein Albumin Triglycerides Cholesterol Total LDL Cholesterol HDL Cholesterol Urine Color Urine Appearance Urine pH Ur Specific [place] Urine Protein Urine Glucose (UA) Urine Ketones Urine Blood Urine Nitrite Urine Bilirubin Urine Urobilinogen Ur Leukocyte Esterase Urine WBC (Auto) Urine RBC (Auto) Ur Epithelial Cells Urine Mucus Acetone, Qual 10/14/17 10/14/17 10/14/17 06:00 06:00 06:00 WBC 4.0 RBC 4.25 Hgb 12.5 D Hct 37.4 MCV 88.0 MCH 29.3 MCHC 33.3 RDW 14.2 Plt Count 144 MPV 8.7 Neutrophils % 39.5 L Lymphocytes % 42.9 H D Monocytes % 16.5 H Eosinophils % 0.4 D Basophils % 0.7 Sodium 134 L Potassium 3.8 Chloride 99 Carbon Dioxide 28 Anion Gap 7 L BUN 11 Creatinine 0.8 Creat Clearance w eGFR POC Glucometer Random Glucose 295 H Hemoglobin A1c % 11.6 H Calcium 8.0 L Phosphorus 3.8 Magnesium 1.7 L Total Bilirubin AST ALT Alkaline Phosphatase Creatine Kinase Creatine Kinase Index CK-MB (CK-2) Troponin I 0.08 H B-Natriuretic Peptide Total Protein Albumin Triglycerides 166 H Cholesterol 139 Total LDL Cholesterol 76 HDL Cholesterol 35 L Urine Color Urine Appearance Urine pH Ur Specific [place] Urine Protein Urine Glucose (UA) Urine Ketones Urine Blood Urine Nitrite Urine Bilirubin Urine Urobilinogen Ur Leukocyte Esterase Urine WBC (Auto) Urine RBC (Auto) Ur Epithelial Cells Urine Mucus Acetone, Qual 10/14/17 06:30 WBC RBC Hgb Hct MCV MCH MCHC RDW Plt Count MPV Neutrophils % Lymphocytes % Monocytes % Eosinophils % Basophils % Sodium Potassium Chloride Carbon Dioxide Anion Gap BUN Creatinine Creat Clearance w eGFR POC Glucometer Random Glucose Hemoglobin A1c % Calcium Phosphorus Magnesium Total Bilirubin AST ALT Alkaline Phosphatase Creatine Kinase Creatine Kinase Index CK-MB (CK-2) Troponin I Cancelled B-Natriuretic Peptide Total Protein Albumin Triglycerides Cholesterol Total LDL Cholesterol HDL Cholesterol Urine Color Urine Appearance Urine pH Ur Specific [place] Urine Protein Urine Glucose (UA) Urine Ketones Urine Blood Urine Nitrite Urine Bilirubin Urine Urobilinogen Ur Leukocyte Esterase Urine WBC (Auto) Urine RBC (Auto) Ur Epithelial Cells Urine Mucus Acetone, Qual Physical Exam: NAD CV: RRR. Lungs: generalized wheezing Abd: soft, NT< ND < NL BS , surgical scar ext: no edema Imaging: Ct scan image reviewed. Assessment/Plan: 67 y/o lady with h/o HTN, DM , CAD, and recent ER admission for fever and cough , was recently started on tamiflu who was called for positive blood cx for pending organism 1- Positive blood cx , one set only. Coag neg G+ coccin in clusters. not a true bacteremia. no need to treat - follow blood cx drawn here 2- Wheezing, cough , periods of desaturaion to 80s . now Sat O2 94 on Ra .acute asthma exa( mild ) - No pNA on CT scan , report pending - give 40 of prednisone today then 30 tomorrow for a short course given her uncontrolled sugar - cont tamiflu day 2 ( started sunday evening ) - acute bronchitis 3 days . viral in nature . no need for abx 3- uncontrolled DM: A1c of 11. - takes 50 units of long acting HS. and 5 units of humalog with breakfast and lunch which is obviously not enough - cont levemir , increase to 50 . - SSI . will dc on SSI 4- Troponenemia: last stress test a year ago, tole everything is fine. 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 updated in OCT. Visit type - Emergency Visit Emergency Visit: Yes ED Registration Date: 10/13/17 Care time: The patient presented to the Emergency Department on the above date and was hospitalized for further evaluation of their emergent condition. - New Patient This patient is new to me today: Yes Date on this admission: 10/14/17 - Critical Care Critical Care patient: No
[2017-10-14] MEDS ORDERED: MAGNESIUM SULF 50% (8.12 MEQ/2 ML-1 GM VIAL) IVPB ONE (15:06)
[2017-10-14] MEDS: IPRATROPIUM BR 0.02% 0.5 MG/2.5 ML VIAL.NEB. NEB PRN (15:44)
--- NOTE | 2017-10-14 18:37 | EKG ---
Test Reason : Blood Pressure : / mmHG Vent. Rate : 098 BPM Atrial Rate : 098 BPM P-R Int : 164 ms QRS Dur : 074 ms QT Int : 360 ms P-R-T Axes : 049 -04 023 degrees QTc Int : 459 ms SINUS RHYTHM WITH OCCASIONAL PREMATURE VENTRICULAR COMPLEXES LOW VOLTAGE QRS CANNOT RULE OUT ANTERIOR INFARCT (CITED ON OR BEFORE 12-OCT-2017) ABNORMAL ECG WHEN COMPARED WITH ECG OF 12-OCT-2017 17:42, PREMATURE VENTRICULAR COMPLEXES ARE NOW PRESENT Confirmed by MD MADISON, ROSAMARIA ([id number]) on 10/14/2017 6:37:14 PM Referred By: Confirmed By:ROSAMARIA WALLACE MD
[2017-10-14] MEDS ORDERED: INSULIN DETEMIR 100 UNITS/ML MDV SQ SCH ×2 (22:00)
[2017-10-14] MEDS ORDERED: ATORVASTATIN CA 20 MG TABLET (FP) PO SCH (22:00)
[2017-10-14] MEDS ORDERED: INSULIN (NOVOLOG) ASPART 100 UNITS/ML 10ML VIAL SQ ONE (22:45)
[2017-10-15] MEDS: HEPARIN NA (PORCINE) 5,000 UNITS/ML 1ML VIAL SQ SCH ×2 (06:14→15:15)
[2017-10-15] MEDS: INSULIN SLIDING SCALE (NOVOLOG) 1 VIAL SQ SCH ×2 (06:16→12:14)
--- NOTE | 2017-10-15 08:33 | PN ---
Teaching Attending Note Name of Resident: Sachin Trevino ATTENDING PHYSICIAN STATEMENT I saw and evaluated the patient. I reviewed the resident's note and discussed the case with the resident. I agree with the resident's findings and plan as documented. SUBJECTIVE: no fever or chills, no abd pain, no SOB , cont with productive cough OBJECTIVE: NAD CV: RRR. Lungs: minimal scattered wheezing , much improved form yesterday. good air entry ext: no edema Assessment/Plan: 67 y/o lady with h/o HTN, DM , CAD, and recent ER admission for fever and cough , was recently started on tamiflu who was called for positive blood cx for pending organism 1- Positive blood cx 10/12/17 , one set only. Coag neg G+ coccin in clusters. not a true bacteremia. no need to treat - await final Id of 10/12 cx - 10/13 cx neg x 24 hr - 09/24 cx pending 2- Mild asthma exacerbation : much improved - no PNA on CT scan , - prednisone 30 today then 20 tomorrow with short course - tamiflu day ( epiric treatment started at [facility] ER ) 3- Uncontrolled DM: A1c of 11. - cont 50 of Levemir HS - cont SSI - referral to [facility] as out pt for better control 4- Troponenemia: last stress test a year ago, was told everything was fine. repeat stress as out p t she will call her card tomorrow to schedule apt, - will update card before dc 5- nodularity in proximal esophagus, seen accidantly on CT of chest. No sx . need EGD and Bx as out pt will refer to GI . diso : Dc home today. PT tammy
[2017-10-15 09:04] VITALS: TEMP 98.4
[2017-10-15] MEDS: amLODIPine BESYLATE 5 MG TABLET (FP) PO SCH (09:53)
[2017-10-15] MEDS: OSELTAMIVIR PHOSPHATE 75 MG CAPSULE PO SCH (09:53)
[2017-10-15] MEDS: RANITIDINE HCL 150 MG TABLET (FP) PO SCH (09:54)
[2017-10-15] MEDS: SERTRALINE HCL 50 MG TABLET (FP) PO SCH (09:54)
[2017-10-15] MEDS: BUDESONIDE/FORMETEROL FUMARATE 160/4.5 mcg INHALER IH SCH (09:54)
[2017-10-15] MEDS: ASPIRIN 81 MG CHEWABLE TABLETS PO SCH (09:54)
[2017-10-15] MEDS ORDERED: predniSONE 10 MG TABLET (UD) PO SCH (10:00)
[2017-10-15] MEDS: IPRATROPIUM BR 0.02% 0.5 MG/2.5 ML VIAL.NEB. NEB PRN (11:02)
[2017-10-15 14:49] VITALS: BP 132/78; PULSE 76
--- NOTE | 2017-10-15 16:18 | DS ---
Physical Exam: SUBJECTIVE: Patient seen and examined at bedside,glucose was elevated over night and received extra 10 units of short acting insulin. denies any fever, chills , N/V/D/C. OBJECTIVE: Vital Signs Period Temp Pulse Resp BP Sys/Mcintosh Pulse Ox Last 24 Hr 98.0 F-99.2 F 67-78 14-20 100-132/59-78 94-94 PHYSICAL EXAM GENERAL: The patient is awake, alert, and fully oriented, in no acute distress. HEAD: Normal with no signs of trauma. EYES: PERRL, extraocular movements intact, sclera anicteric, conjunctiva clear. ENT: Ears normal, nares patent, oropharynx clear without exudates, moist mucous membranes. NECK: Trachea midline, full range of motion, supple. LUNGS: diffuse expiratory wheezing, no crackles, no accessory muscle use. HEART: Regular rate and rhythm, S1, S2 without murmur, rub or gallop. ABDOMEN: Obese Soft, nontender, nondistended, normoactive bowel sounds, no guarding, no rebound, EXTREMITIES: 2+ pulses, warm, well-perfused, no edema. NEUROLOGICAL: Cranial nerves II through XII grossly intact. Normal speech, gait not observed. PSYCH: Normal mood, normal affect. SKIN: Warm, dry, LABS Laboratory Results - last 24 hr 10/14/17 10/14/17 10/14/17 11:20 15:26 21:28 POC Glucometer [phone] > 400 Random Glucose 10/14/17 10/15/17 10/15/17 21:53 05:34 11:31 POC Glucometer [phone] Random Glucose 417 H* CBC, BMP 10/14/17 06:00 10/14/17 21:53 HOSPITAL COURSE: Date of Admission:10/13/17 Date of Discharge: 10/15/17 is 67 y/o lady with h/o HTN, DM , CAD, and recent ER admission for fever and cough, was recently started on tamiflu who was called for positive blood cx for pending organism Positive blood cx 10/12/17 , one set only. Coag neg G+ coccin in clusters. not a true bacteremia. no need to treat, 10/13 cx neg x 24 hr . 2/ cx pending . For Mild asthma exacerbation improved will be discharged home on steroids taper over 3 days , no PNA on CT scan , will cont tamiflu day 3 /5 ( epiric treatment started at [facility] ) .for Uncontrolled DM: A1c of 11. 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 pt was found to have nodularity in proximal esophagus, seen accidentally on CT of chest. No sx . need EGD and Bx as out pt will refer to GI . pt will be Dc home today. Minutes to complete discharge: 40 Discharge Summary Reason For Visit: ELEVATED TROPIN LEVEL/HYPOXIA Condition: Improved - Instructions Diet, Activity, Other Instructions: You were admitted to the hospital for positive blood culture in one bottle only ; your blood culture done on admission is negative so there is no need to be treated with antibiotics. Because your sugar is poorly controlled Hgb A1c=11.6 (goal of 6) and because you will be on a short course of prednisone at home which increased blood sugar , you need to tightly control your sugar at home. We will prescribe a glucometer and you will have to measure your sugar 3 times a day and inject insulin sliding scale in the amount according to your blood sugar. Take your Tresiba at night 50 units like per your routine. continue your oral diabetes medicaitons as well . You also need to follow up with an telephone coin box collector to adjust insulin medications. You had a CT scan of your chest done in the hospital. There was an incidental finding of "nodular density in proximal esophagus". It is unknown what the nature of this finding is so you need to follow up with a ram car operator for and upper endoscopy an possible biopsy You need a close follow up with your application support intern because your cardiac markers were briefly elevated while in the hospital. Maybe you need a stress test. Follow up : *Primary care physician within one week *Follow up closely with you application support intern ([phone]) for repeated stress test and monitor blood pressure. *Endocrinology in one week for better control of diabetes. *Foot Specialist for the nodules in eophagus/EGD test Medications: *Please take your medicine as prescribed *Finish 2 more days of tamiflu *Please take Prednisone taper as prescribed 20 mg for 2 days and then 10 mg for two days *Please start using insulin sliding scale as following (and stop using the 5 units before breakfast and lunch) ISS three time aday with meals per following protocol 101- 150.......0 units 151-200........2 units 201-250........4 Units 251-300.......6 Units 301-350.......8 Units 351-400 ......10 units >400 ....... 12 and call doctor Emergency visit: If you develop fever, chills or your symptoms worsen please call 911 or return to emergency room as soon as possible. Referrals: Ford Blount MD [Staff Physician] - 3 Weeks ON STAFF,NOT [Primary Care Provider] - 1 Week Pretty Vázquez MD [Staff Physician] - 1 Week Disposition: VNS/HOME HEALTH CARE - Home Medications Comprehensive Discharge Medication List: Ambulatory Orders Amlodipine Besylate [Norvasc -] 5 mg PO DAILY 10/12/17 Aspirin [ASA -] 81 mg PO DAILY 10/12/17 Budesonide/Formeterol Fumarate [SYMBICORT 160/4.5mcg -] 1 inh PO DAILY 10/12/17 Insulin Degludec [Tresiba Flextouch U-100] 50 unit SQ HS 10/12/17 Oseltamivir Phosphate [Tamiflu -] 75 mg PO BID #10 capsule 10/12/17 Ranitidine HCl [Acid Control] 150 mg PO DAILY 10/12/17 Sertraline HCl 50 mg PO DAILY 10/12/17 Simvastatin [Zocor -] 40 mg PO HS 10/12/17 Sitagliptin Phosphate [Januvia] 100 mg PO DAILY 10/12/17 Zolpidem Tartrate [Ambien] 10 mg PO HS 10/12/17 Albuterol Sulfate [Proair Respiclick] 90 mcg IH Q6H PRN 10/14/17 Glimepiride [Amaryl] 4 mg PO DAILY 10/14/17 Insulin Sliding Scale [Novolog Vial Sliding Scale -] 1 vial SQ TIDAC 30 Days #1 units 10/15/17 predniSONE [Deltasone -] 10 mg PO ASDIR #6 tab 10/15/17 This patient is new to me today: Yes Date on this admission: 10/15/17 Emergency Visit: Yes ED Registration Date: 10/13/17 Care time: The patient presented to the Emergency Department on the above date and was hospitalized for further evaluation of their emergent condition. Critical Care patient: No - Discharge Referral Referred to [facility] Med P.C.: No
== END 2017-10-15 15:40 | disposition home health service (06) ==
LOC: JER 19:06 → INTOOBSV 23:41 → JERBED 23:41 → UNDOADMIN 23:52 → J2W 10-14 01:08
PROVIDERS: ADMIT Internal Medicine; ATTEND Internal Medicine
PROC: 3E03329 Introduction of Other Anti-infective into Peripheral Vein, Percutaneous Approach (ICD-10-PCS; principal; 2017-10-13)
PROC: 3E0337Z Introduction of Electrolytic and Water Balance Substance into Peripheral Vein, Percutaneous Approach (ICD-10-PCS; 2017-10-13)
PROC: 3E033GC Introduction of Other Therapeutic Substance into Peripheral Vein, Percutaneous Approach (ICD-10-PCS; 2017-10-13)
PROC: 3E013VG Introduction of Insulin into Subcutaneous Tissue, Percutaneous Approach (ICD-10-PCS; 2017-10-13)
PROC: 3E0F7GC Introduction of Other Therapeutic Substance into Respiratory Tract, Via Natural or Artificial Opening (ICD-10-PCS; 2017-10-13)
DX: R77.8 Other specified abnormalities of plasma proteins (principal); R09.02 Hypoxemia; E11.65 Type 2 diabetes mellitus with hyperglycemia; Z79.4 Long term (current) use of insulin; I10 Essential (primary) hypertension; E78.5 Hyperlipidemia, unspecified; J45.901 Unspecified asthma with (acute) exacerbation; K22.8 Other specified diseases of esophagus; Z86.79 Personal history of other diseases of the circulatory system; Z95.5 Presence of coronary angioplasty implant and graft; Z88.5 Allergy status to narcotic agent; Z79.82 Long term (current) use of aspirin
CPT/HCPCS: 36415; 71250-TC; 80048; 80053; 80061; 81003; 81015; 82009; 82550; 82553; 82947; 82962; 83036; 83721; 83735; 83880; 84100; 84484; 85025; 87040; 87804; 93005; 93010; 94640; 96365; 96372; 96375; 97116-GP; 97161-GP; 99285-25; G0378; J1644

== ENCOUNTER 2021-07-01 20:00 | Emergency (ER) | payer OTHER ==
[2021-07-01 20:04] VITALS: BP 174/104; PULSE 74; TEMP 97; BMI 37.2
[2021-07-01 22:16] LABS: URINE APPEARANCE CLEAR; URINE BILIRUBIN NEGATIVE (NEGATIVE); URINE COLOR YELLOW; URINE GLUCOSE (UA) 2+ (NEGATIVE); URINE KETONE NEGATIVE (NEGATIVE); URINE LEUK ESTERASE NEGATIVE (NEGATIVE); URINE NITRITE NEGATIVE (NEGATIVE); URINE PROTEIN NEGATIVE (NEGATIVE); URINE UROBILINOGEN 0.2 mg/dL (0.2-1.0)
[2021-07-01 22:17] LABS: EOS % 1.4 % (0-4.5); HEMATOCRIT 44.3 % (32.4-45.2); HEMOGLOBIN 15.1 GM/dL (10.7-15.3); LYMPH % 30.6 % (8-40); MCHC 34.1 g/dl (32.0-36.0); MEAN CELL VOLUME 87.8 fl (80-96); MEAN PLT VOLUME 8.6 fl (7.5-11.1); MONO % 7.7 % (3.8-10.2); NEUT % 59.3 % (42.8-82.8); PLATELET COUNT 215 10^3/uL (134-434); RBC 5.04 M/mm3 (3.60-5.2); RDW 13.6 % (11.6-15.6); WHITE BLOOD COUNT 7.1 K/mm3 (4.0-10.0)
[2021-07-01 22:33] LABS: CHLORIDE 99 mmol/L (98-107); SODIUM 135 mmol/L (136-145)
[2021-07-01 22:35] LABS: ALBUMIN 3.4 g/dl (3.4-5.0); CALCIUM 9.5 mg/dL (8.5-10.1)
[2021-07-01 22:36] LABS: ANION GAP 4 MMOL/L (8-16); CO2 32 mmol/L (21-32); GLUCOSE,RANDOM 210 mg/dL (74-106); LIPASE 131 U/L (73-393)
[2021-07-01 22:38] LABS: SGOT/AST 22 U/L (15-37); SGPT/ALT 29 U/L (13-61)
[2021-07-01 22:39] LABS: CREATININE 0.9 mg/dL (0.55-1.3)
[2021-07-01] MEDS ORDERED: FAMOTIDINE 20 MG/50 ML IVPB 20 MG/50 ML MG IVPB ONE ×2 (22:39→23:27)
[2021-07-01] MEDS ORDERED: SODIUM CHLORIDE 0.9% 500 ML INFUS.BAG IV ONE (22:39)
[2021-07-01] MEDS ORDERED: MAG HYDROX/AL HYDROX/SIMETH 30 ML UNIT-DOSE CUP PO ONE (22:39)
[2021-07-01] MEDS ORDERED: ACETAMINOPHEN 1000 MG/100 ML VIAL IVPB ONE (22:39)
[2021-07-01 22:40] LABS: BILIRUBIN,TOTAL 0.4 mg/dL (0.2-1); TOT PROT 8.7 g/dl (6.4-8.2)
[2021-07-01 22:41] LABS: ALK PHOS 103 U/L (45-117)
[2021-07-01] MEDS ORDERED: MAG HYDROX/AL HYDROX/SIMETH 30 ML UNIT-DOSE CUP ONE (22:48)
[2021-07-01] MEDS ORDERED: ACETAMINOPHEN INJECTION 100 ML IVPB ONE (22:51)
== END 2021-07-02 00:33 | disposition home or self-care (01) ==
LOC: JER 20:00
PROC: 3E033GC Introduction of Other Therapeutic Substance into Peripheral Vein, Percutaneous Approach (ICD-10-PCS; principal; 2021-07-01)
DX: R10.84 Generalized abdominal pain (principal)
CPT/HCPCS: 36415; 74177-TC; 80053; 81003; 82550; 82962; 83605; 83690; 84484; 85025; 87086; 93005; 93010; 96365; 96375; 99285-25; C9803; J0131; Q9967; U0003; U0005

== ENCOUNTER 2023-12-23 10:40 | Observation (INO) | payer OTHER ==
[2023-12-23] MEDS ORDERED: ONDANSETRON 4 MG/2 ML VIAL ONE (11:45)
[2023-12-23] MEDS ORDERED: MAG HYDROX/AL HYDROX/SIMETH 30 ML UNIT-DOSE CUP ONE (11:45)
[2023-12-23] MEDS ORDERED: FAMOTIDINE 10 MG/ML VIAL IVPB ONE (11:46)
[2023-12-23] MEDS: ONDANSETRON 4 MG/2 ML VIAL IVPUSH ONE (12:20)
[2023-12-23] MEDS: FAMOTIDINE 20 MG/50 ML IVPB 20 MG/50 ML MG IVPB ONE (12:20)
[2023-12-23] MEDS: MAG HYDROX/AL HYDROX/SIMETH 30 ML UNIT-DOSE CUP PO ONE (12:20)
[2023-12-23 12:25] LABS: EOS % 1.3 % (0-4.5); HEMATOCRIT 41.8 % (32.4-45.2); LYMPH % 31.9 % (8-40); MCH 29.9 pg (25.7-33.7); MCHC 33.5 g/dl (32.0-36.0); MEAN CELL VOLUME 89.1 fl (80-96); MEAN PLT VOLUME 8.4 fl (7.5-11.1); MONO % 7.9 % (3.8-10.2); NEUT % 57.9 % (42.8-82.8); PLATELET COUNT 207 10^3/uL (134-434); RBC 4.69 M/mm3 (3.60-5.2); RDW 15.5 % (11.6-15.6); WHITE BLOOD COUNT 6.3 K/mm3 (4.0-10.0)
[2023-12-23 12:41] LABS: CHLORIDE 102 mmol/L (98-107); SODIUM 135 mmol/L (136-145)
[2023-12-23 12:44] LABS: ALBUMIN 3.3 g/dl (3.4-5.0); BLOOD UREA NITROGEN 17.4 mg/dL (7-18); CO2 30 mmol/L (21-32); GLUCOSE,RANDOM 169 mg/dL (74-106)
[2023-12-23 12:47] LABS: CREATININE 0.9 mg/dL (0.55-1.3); SGOT/AST 62 U/L (15-37); SGPT/ALT 28 U/L (13-61)
[2023-12-23 12:48] LABS: TOT PROT 9.4 g/dl (6.4-8.2)
[2023-12-23 12:49] LABS: BILIRUBIN,TOTAL 0.5 mg/dL (0.2-1)
[2023-12-23 12:50] LABS: ALK PHOS 87 U/L (45-117)
[2023-12-23 13:01] LABS: ANION GAP 3 mmol/L (4-13)
[2023-12-23] MEDS ORDERED: ASPIRIN 325 MG TABLET ONE (13:27)
[2023-12-23] MEDS: ASPIRIN 81 MG CHEWABLE TABLETS PO ONE (13:39)
[2023-12-23 14:11] LABS: INR 1.02 (0.83-1.09); PROTHROMBIN TIME (PATIENT) 11.5 SEC (9.7-13.0)
[2023-12-23 14:14] LABS: ACTIVATED PTT 32.9 SECONDS (25.2-36.5)
[2023-12-23] MEDS ORDERED: PATIENT'S OWN MEDICATION (NON-FORMULARY) (Albuterol Sulfate [Proair Respiclick] 90 MCG Aer IH PRN (16:26)
[2023-12-23 17:28] VITALS: BMI 40.1
[2023-12-23] MEDS: INSULIN ASPART SLIDING SCALE (NOVOLOG) 1 VIAL SQ SCH (17:55)
[2023-12-23] MEDS: PANTOPRAZOLE 40 MG TABLET PO SCH (17:56)
[2023-12-23] MEDS ORDERED: INSULIN (NOVOLOG) ASPART 100 UNITS/ML 10ML VIAL ONE (19:59)
[2023-12-23] MEDS: ACETAMINOPHEN 325 MG TABLET (FP) PO ONE (20:41)
[2023-12-23] MEDS: INSULIN (LEVEMIR) 100 UNITS/ML UNITS SQ SCH (21:16)
[2023-12-23] MEDS: ATORVASTATIN CA 20 MG TABLET (FP) PO SCH (21:16)
[2023-12-23] MEDS: ZOLPIDEM TARTRATE 5 MG TABLET PO PRN (21:17)
[2023-12-24] MEDS: GABAPENTIN 100 MG CAPSULE PO SCH (03:07)
[2023-12-24 07:50] LABS: POTASSIUM 4.9 mmol/L (3.5-5.1)
[2023-12-24 07:54] LABS: CALCIUM 9.6 mg/dL (8.5-10.1)
[2023-12-24 07:55] LABS: BLOOD UREA NITROGEN 17.9 mg/dL (7-18)
[2023-12-24 07:56] LABS: EOS % 1.7 % (0-4.5); HEMATOCRIT 38.7 % (32.4-45.2); HEMOGLOBIN 12.6 GM/dL (10.7-15.3); MCH 29.2 pg (25.7-33.7); MCHC 32.5 g/dl (32.0-36.0); MEAN CELL VOLUME 89.9 fl (80-96); MEAN PLT VOLUME 8.4 fl (7.5-11.1); NEUT % 52.3 % (42.8-82.8); PLATELET COUNT 166 10^3/uL (134-434); RDW 15.2 % (11.6-15.6); WHITE BLOOD COUNT 5.2 K/mm3 (4.0-10.0)
[2023-12-24 07:58] LABS: CREATININE 0.9 mg/dL (0.55-1.3)
[2023-12-24 07:59] LABS: BILIRUBIN,TOTAL 0.5 mg/dL (0.2-1); TOT PROT 7.8 g/dl (6.4-8.2)
[2023-12-24] MEDS: ACETAMINOPHEN 325 MG TABLET (FP) PO PRN (09:03)
[2023-12-24] MEDS: ASPIRIN 81 MG CHEWABLE TABLETS PO SCH (09:59)
[2023-12-24] MEDS: SERTRALINE HCL 50 MG TABLET (FP) PO SCH (09:59)
[2023-12-24] MEDS: amLODIPine BESYLATE 5 MG TABLET (FP) PO SCH (09:59)
[2023-12-24] MEDS: FAMOTIDINE 20 MG TABLET PO SCH (09:59)
[2023-12-24] MEDS: BUDESONIDE/FORMETEROL FUMARATE 160/4.5 mcg INHALER IH SCH (10:06)
[2023-12-24] MEDS ORDERED: HEPARIN NA (PORCINE) 5,000 UNITS/ML 1ML VIAL IVPUSH PRN ×2 (11:50)
[2023-12-24] MEDS: CLOPIDOGREL BISULFATE 300 MG TABLET PO ONE (14:16)
[2023-12-24] MEDS: HEPARIN SOD,PORK IN 0.45% NACL 25,000 UNITS/500 ML INFUS.BAG IVPB SCH (16:07)
[2023-12-25 01:15] VITALS: TEMP 98.1
[2023-12-25 05:37] VITALS: BP 126/62; PULSE 78; RESP 20
[2023-12-25 08:14] LABS: BASO % 1.2 % (0-2.0); EOS % 1.6 % (0-4.5); HEMATOCRIT 36.4 % (32.4-45.2); HEMOGLOBIN 11.9 GM/dL (10.7-15.3); MCH 29.4 pg (25.7-33.7); MCHC 32.9 g/dl (32.0-36.0); MEAN CELL VOLUME 89.5 fl (80-96); MEAN PLT VOLUME 8.7 fl (7.5-11.1); MONO % 11.2 % (3.8-10.2); PLATELET COUNT 148 10^3/uL (134-434); RBC 4.06 M/mm3 (3.60-5.2); RDW 15.3 % (11.6-15.6); WHITE BLOOD COUNT 5.4 K/mm3 (4.0-10.0)
[2023-12-25 08:28] LABS: POTASSIUM 4.5 mmol/L (3.5-5.1)
[2023-12-25 08:38] LABS: BLOOD UREA NITROGEN 18.5 mg/dL (7-18); CALCIUM 9.3 mg/dL (8.5-10.1); MAGNESIUM 2.1 mg/dL (1.8-2.4)
[2023-12-25 08:39] LABS: ALBUMIN 2.9 g/dl (3.4-5.0)
[2023-12-25 08:40] LABS: BILIRUBIN,TOTAL 0.5 mg/dL (0.2-1); CREATININE 0.8 mg/dL (0.55-1.3)
[2023-12-25 08:41] LABS: TOT PROT 7.5 g/dl (6.4-8.2)
[2023-12-25] MEDS ORDERED: CLOPIDOGREL BISULFATE 75 MG TABLET (FP) PO SCH (10:00)
== END 2023-12-25 08:01 | disposition short-term general hospital (02) ==
LOC: JER 10:40 → JERBED 15:58 → J4W 17:32
PROVIDERS: ADMIT Internal Medicine; ATTEND Internal Medicine
PROC: 3E033GC Introduction of Other Therapeutic Substance into Peripheral Vein, Percutaneous Approach (ICD-10-PCS; principal; 2023-12-23)
DX: R07.9 Chest pain, unspecified (principal); E11.9 Type 2 diabetes mellitus without complications; I10 Essential (primary) hypertension; E78.5 Hyperlipidemia, unspecified; J45.909 Unspecified asthma, uncomplicated; Z90.49 Acquired absence of other specified parts of digestive tract; E66.9 Obesity, unspecified; Z88.8 Allergy status to other drugs, medicaments and biological substances; Z88.5 Allergy status to narcotic agent
CPT/HCPCS: 36415; 71045-TC-FY; 74177-TC; 80053; 80061; 82550; 82962; 83036; 83690; 83735; 84100; 84132; 84484; 85025; 85610; 85730; 87635; 93005; 93010; 96365; 96367; 96375; 99285-25; G0378; Q9967

== ENCOUNTER 2024-02-12 19:47 | Observation (INO) | payer OTHER ==
[2024-02-12 21:41] LABS: BASO % 0.9 % (0-2.0); EOS % 0.5 % (0-4.5); HEMATOCRIT 41.5 % (32.4-45.2); HEMOGLOBIN 14.1 GM/dL (10.7-15.3); LYMPH % 25.7 % (8-40); MCH 30.2 pg (25.7-33.7); MEAN CELL VOLUME 88.8 fl (80-96); MEAN PLT VOLUME 7.9 fl (7.5-11.1); MONO % 7.8 % (3.8-10.2); NEUT % 65.1 % (42.8-82.8); PLATELET COUNT 212 10^3/uL (134-434); RBC 4.67 M/mm3 (3.60-5.2); RDW 14.3 % (11.6-15.6); VENOUS BASE EXCESS 4.2 mmol/L (-2-2); VENOUS O2 SATURATION 41.6 % (70-80); VENOUS PCO2 53.3 mmHg (38-52); VENOUS PH 7.38 (7.310-7.410); WHITE BLOOD COUNT 7.4 K/mm3 (4.0-10.0)
[2024-02-12 22:09] LABS: BLOOD UREA NITROGEN 12.1 mg/dL (7-18); CALCIUM 9.6 mg/dL (8.5-10.1)
[2024-02-12 22:10] LABS: ALBUMIN 3.4 g/dl (3.4-5.0)
[2024-02-12] MEDS ORDERED: ACETAMINOPHEN INJECTION 100 ML IVPB ONE (22:11)
[2024-02-12] MEDS ORDERED: SUCRALFATE 1 GM TABLET (FP) ONE (22:11)
[2024-02-12] MEDS ORDERED: PANTOPRAZOLE SODIUM 40 MG/100 ML BAG IVPB ONE (22:11)
[2024-02-12] MEDS ORDERED: FAMOTIDINE 20 MG/50 ML IVPB 20 MG/50 ML MG IVPB ONE (22:12)
[2024-02-12 22:13] LABS: BILIRUBIN,TOTAL 0.5 mg/dL (0.2-1); TOT PROT 8.9 g/dl (6.4-8.2)
[2024-02-12] MEDS: SUCRALFATE 1 GM TABLET (FP) PO ONE (22:26)
[2024-02-12] MEDS: PANTOPRAZOLE SODIUM 40 MG VIAL IVPUSH ONE (22:26)
[2024-02-12] MEDS: SODIUM CHLORIDE 0.9% 500 ML INFUS.BAG IV ONE (22:26)
[2024-02-12] MEDS ORDERED: ASPIRIN 81 MG CHEWABLE TABLETS PO ONE (22:26)
[2024-02-12] MEDS: FAMOTIDINE 20 MG/50 ML IVPB 20 MG/50 ML MG IVPB ONE (22:26)
[2024-02-12] MEDS: ACETAMINOPHEN 1000 MG/100 ML BAG IVPB ONE (22:26)
[2024-02-12 22:37] LABS: EPI CELLS >36 /uL (0-25.1); HYALINE CASTS 1 /uL (0-3.1); PH,URINE 6.5 (5.0-8.0); URINE APPEARANCE CLEAR; URINE BACTERIA 2411 /uL (0-1359); URINE BILIRUBIN NEGATIVE (NEGATIVE); URINE COLOR YELLOW; URINE GLUCOSE (UA) 2+ (NEGATIVE); URINE KETONE NEGATIVE (NEGATIVE); URINE LEUK ESTERASE 1+ (NEGATIVE); URINE NITRITE NEGATIVE (NEGATIVE); URINE PROTEIN 2+ (NEGATIVE); URINE RBC 12 /uL (0-23.9); URINE UROBILINOGEN 0.2 mg/dL (0.2-1.0); URINE WBC 64 /uL (0-25.8)
[2024-02-12] MEDS ORDERED: CEFTRIAXONE 1 GM/50 ML BAG ONE (23:02)
[2024-02-12] MEDS ORDERED: ASPIRIN 81 MG CHEWABLE TABLETS ONE (23:02)
[2024-02-12] MEDS: ASPIRIN 81 MG CHEWABLE TABLETS PO ONE (23:09)
[2024-02-12] MEDS: CEFTRIAXONE 1 GM in DEXTROSE 5%-WATER - 100 ML IVPB ONE (23:09)
[2024-02-13] MEDS: INSULIN (LEVEMIR) 100 UNITS/ML UNITS SQ SCH (01:53)
[2024-02-13] MEDS: ACETAMINOPHEN 1000 MG/100 ML BAG IVPB ONE (04:30)
[2024-02-13] MEDS: ONDANSETRON 4 MG/2 ML VIAL IVPUSH ONE (04:36)
[2024-02-13 08:26] LABS: POTASSIUM 4.1 mmol/L (3.5-5.1)
[2024-02-13 08:38] LABS: BLOOD UREA NITROGEN 11.2 mg/dL (7-18); CALCIUM 9.3 mg/dL (8.5-10.1)
[2024-02-13 08:40] LABS: HEMATOCRIT 37.9 % (32.4-45.2); HEMOGLOBIN 12.6 GM/dL (10.7-15.3); MCH 29.7 pg (25.7-33.7); MCHC 33.2 g/dl (32.0-36.0); MEAN CELL VOLUME 89.4 fl (80-96); MEAN PLT VOLUME 8.4 fl (7.5-11.1); PLATELET COUNT 189 10^3/uL (134-434); RBC 4.24 M/mm3 (3.60-5.2); WHITE BLOOD COUNT 6.3 K/mm3 (4.0-10.0)
[2024-02-13 08:41] LABS: CREATININE 0.9 mg/dL (0.55-1.3); PHOSPHOROUS 3.6 mg/dL (2.5-4.9)
[2024-02-13 08:42] LABS: BILIRUBIN,TOTAL 0.4 mg/dL (0.2-1); TOT PROT 7.6 g/dl (6.4-8.2)
[2024-02-13] MEDS ORDERED: MAGNESIUM HYDROX 2400MG/30ML ORAL SUSPENSION 30 ML CUP PO PRN (08:44)
[2024-02-13] MEDS ORDERED: BISACODYL 10 MG SUPP.RECT PR PRN (08:44)
[2024-02-13] MEDS: INSULIN ASPART SLIDING SCALE (NOVOLOG) 1 VIAL SQ SCH (11:11)
[2024-02-13] MEDS ORDERED: POLYETHYLENE GLYCOL (HEALTHYLAX) 3350 17 GM PACKET ONE ×2 (11:18→19:56)
[2024-02-13] MEDS ORDERED: PANTOPRAZOLE 40 MG TABLET PO ONE (11:18)
[2024-02-13] MEDS ORDERED: FAMOTIDINE 20 MG TABLET ONE (11:19)
[2024-02-13] MEDS ORDERED: ENOXAPARIN NA (PORCINE) 40 MG/0.4 ML DISP.SYRIN SQ ONE (11:19)
[2024-02-13] MEDS ORDERED: SERTRALINE HCL 50 MG TABLET (FP) ONE (11:19)
[2024-02-13] MEDS ORDERED: NIFEdipine E.R. 30 MG TABLET PO ONE (11:19)
[2024-02-13] MEDS ORDERED: ASPIRIN COATED 81 MG TABLET.EC ONE (11:19)
[2024-02-13] MEDS ORDERED: INSULIN (LEVEMIR) 100 UNITS/ML UNITS SQ ONE ×2 (11:20→19:56)
[2024-02-13] MEDS: PANTOPRAZOLE 40 MG TABLET PO SCH (11:36)
[2024-02-13] MEDS: ASPIRIN COATED 81 MG TABLET.EC PO SCH (11:36)
[2024-02-13] MEDS: POLYETHYLENE GLYCOL (HEALTHYLAX) 3350 17 GM PACKET PO SCH ×2 (11:36→22:16)
[2024-02-13] MEDS: FAMOTIDINE 40 MG TABLET PO SCH (11:36)
[2024-02-13] MEDS: ENOXAPARIN NA (PORCINE) 40 MG/0.4 ML DISP.SYRIN SQ SCH (11:36)
[2024-02-13] MEDS: SERTRALINE HCL 50 MG TABLET (FP) PO SCH (11:37)
[2024-02-13] MEDS: NIFEdipine E.R. 30 MG TABLET PO SCH (11:37)
[2024-02-13] MEDS ORDERED: ONDANSETRON 4 MG/2 ML VIAL ONE (16:02)
[2024-02-13] MEDS ORDERED: ACETAMINOPHEN INJECTION 100 ML IVPB ONE (16:02)
[2024-02-13] MEDS: ONDANSETRON 4 MG/2 ML VIAL IVPUSH PRN (16:11)
[2024-02-13] MEDS: SODIUM PHOSPHATE/NA BIPHOS 133 ML ENEMA RC ONE (16:11)
[2024-02-13] MEDS: ACETAMINOPHEN 1000 MG/100 ML BAG IVPB PRN (16:11)
[2024-02-13] MEDS ORDERED: METOCLOPRAMIDE HCL INJECTION 10 MG/2 ML VIAL ONE (18:09)
[2024-02-13] MEDS: METOCLOPRAMIDE HCL INJECTION 10 MG/2 ML VIAL IVPUSH SCH (18:14)
[2024-02-13] MEDS ORDERED: ROSUVASTATIN CA 20 MG TABLET ONE (19:56)
[2024-02-13] MEDS ORDERED: INSULIN ASPART SLIDING SCALE (NOVOLOG) 1 VIAL SQ ONE (19:56)
[2024-02-13] MEDS ORDERED: SENNOSIDES 8.6MG TABLET (FP) PO ONE (19:56)
[2024-02-13] MEDS: ROSUVASTATIN CA 20 MG TABLET PO SCH (22:16)
[2024-02-13] MEDS: SENNOSIDES 8.6MG TABLET (FP) PO SCH (22:17)
[2024-02-13] MEDS ORDERED: MELATONIN 5 MG TABLETS ONE (23:43)
[2024-02-13] MEDS ORDERED: ZOLPIDEM TARTRATE 5 MG TABLET ONE (23:43)
[2024-02-13] MEDS: ZOLPIDEM TARTRATE 5 MG TABLET PO PRN (23:46)
[2024-02-13] MEDS: MELATONIN 5 MG TABLETS PO PRN (23:46)
[2024-02-14 06:39] LABS: HEMOGLOBIN 12.2 GM/dL (10.7-15.3); MCH 29.8 pg (25.7-33.7); MEAN CELL VOLUME 90.4 fl (80-96); MEAN PLT VOLUME 8.4 fl (7.5-11.1); PLATELET COUNT 186 10^3/uL (134-434); RBC 4.09 M/mm3 (3.60-5.2); WHITE BLOOD COUNT 7.1 K/mm3 (4.0-10.0)
[2024-02-14 06:56] LABS: POTASSIUM 4.3 mmol/L (3.5-5.1)
[2024-02-14 07:00] LABS: BLOOD UREA NITROGEN 12.5 mg/dL (7-18); CALCIUM 8.9 mg/dL (8.5-10.1)
[2024-02-14 07:03] LABS: CREATININE 0.9 mg/dL (0.55-1.3)
[2024-02-14] MEDS: CEPHALEXIN MONOHYDRATE 500 MG CAPSULE (UD) PO SCH (10:14)
[2024-02-14] MEDS: FAMOTIDINE 20 MG TABLET PO SCH (10:14)
[2024-02-14 11:25] VITALS: RESP 20
[2024-02-14] MEDS ORDERED: MAG HYDROX/AL HYDROX/SIMETH 30 ML UNIT-DOSE CUP PO PRN (11:41)
[2024-02-14] MEDS: ACETAMINOPHEN 1000 MG/100 ML BAG IVPB PRN (13:07)
[2024-02-14 14:17] VITALS: BP 114/66; PULSE 66; TEMP 97.8
[2024-02-14 16:16] VITALS: BMI 39.3
[2024-02-14] MEDS: CEPHALEXIN MONOHYDRATE 500 MG CAPSULE (UD) PO ONE (17:36)
== END 2024-02-14 18:40 | disposition home or self-care (01) ==
LOC: JER 19:47 → JERBED 22:30 → J4S 02-14 01:45
PROVIDERS: ADMIT Internal Medicine; ATTEND Nurse Practitioner
PROC: 3E033NZ Introduction of Analgesics, Hypnotics, Sedatives into Peripheral Vein, Percutaneous Approach (ICD-10-PCS; principal; 2024-02-12)
PROC: 3E03329 Introduction of Other Anti-infective into Peripheral Vein, Percutaneous Approach (ICD-10-PCS; 2024-02-12)
PROC: 3E023GC Introduction of Other Therapeutic Substance into Muscle, Percutaneous Approach (ICD-10-PCS; 2024-02-12)
PROC: 3E0337Z Introduction of Electrolytic and Water Balance Substance into Peripheral Vein, Percutaneous Approach (ICD-10-PCS; 2024-02-12)
DX: R10.13 Epigastric pain (principal); N39.0 Urinary tract infection, site not specified; R77.8 Other specified abnormalities of plasma proteins; K59.00 Constipation, unspecified; I25.10 Atherosclerotic heart disease of native coronary artery without angina pectoris; E66.9 Obesity, unspecified; E78.5 Hyperlipidemia, unspecified; J45.909 Unspecified asthma, uncomplicated; E11.9 Type 2 diabetes mellitus without complications; Z79.4 Long term (current) use of insulin; I11.9 Hypertensive heart disease without heart failure; Z95.5 Presence of coronary angioplasty implant and graft; Z90.49 Acquired absence of other specified parts of digestive tract; Z88.5 Allergy status to narcotic agent; Z88.8 Allergy status to other drugs, medicaments and biological substances
CPT/HCPCS: 36415; 71045-TC-FY; 80048; 80053; 81003; 82010; 82803; 82962; 83690; 83735; 84100; 84484; 85025; 85027; 87086; 87186; 93005; 93010; 93306-TC; 96365; 96372; 96375; 96376; 99285-25; G0378; J0131

== ENCOUNTER 2024-08-26 09:21 | Observation (INO) | payer OTHER ==
[2024-08-26] MEDS ORDERED: MAG HYDROX/AL HYDROX/SIMETH 30 ML UNIT-DOSE CUP ONE (10:10)
[2024-08-26] MEDS ORDERED: ACETAMINOPHEN INJECTION 100 ML ONE (10:10)
[2024-08-26] MEDS ORDERED: FAMOTIDINE 20 MG/50 ML IVPB 20 MG/50 ML MG IVPB ONE (10:10)
[2024-08-26] MEDS ORDERED: ONDANSETRON 4 MG/2 ML VIAL ONE (10:10)
[2024-08-26] MEDS: FAMOTIDINE 20 MG/50 ML IVPB 20 MG/50 ML MG IVPB SCH (10:17)
[2024-08-26] MEDS: ACETAMINOPHEN 1000 MG/100 ML BAG IVPB ONE (10:17)
[2024-08-26] MEDS: SODIUM CHLORIDE 1,000 ML IV STA (10:17)
[2024-08-26] MEDS: ONDANSETRON 4 MG/2 ML VIAL IVPB ONE (10:17)
[2024-08-26] MEDS: MAG HYDROX/AL HYDROX/SIMETH 30 ML UNIT-DOSE CUP PO ONE (10:17)
[2024-08-26 10:32] LABS: HEMATOCRIT 44.8 % (32.4-45.2); HEMOGLOBIN 14.8 G/dL (10.7-15.3); MCH 29.6 pg (25.7-33.7); MEAN CELL VOLUME 89.5 fl (80-96); MEAN PLT VOLUME 9.2 fl (7.5-11.1); PLATELET COUNT 185.9 10^3/uL (134-434); RDW 13.8 % (11.6-15.6); WHITE BLOOD COUNT 6.8 10^3/uL (4.0-10.8)
[2024-08-26 10:37] LABS: ALBUMIN 3.9 g/dl (3.4-5.0); BILIRUBIN,TOTAL 0.4 mg/dl (0.2-1); CALCIUM 9.8 mg/dl (8.5-10.1); CREATININE 0.9 mg/dl (0.6-1.3); POTASSIUM 4.7 mmol/L (3.5-5.1); TOT PROT 7.8 g/dl (6.4-8.2)
[2024-08-26 10:39] LABS: PLATELET ESTIMATE ADEQUATE
[2024-08-26] MEDS ORDERED: morphine SULFATE 4 MG/ML VIAL ONE (12:51)
[2024-08-26] MEDS ORDERED: KETOROLAC TROMETHAMINE 15 MG/ML VIAL ONE (12:56)
[2024-08-26] MEDS: KETOROLAC TROMETHAMINE 15 MG/ML VIAL IVPUSH ONE (13:03)
[2024-08-26] MEDS: morphine SULFATE 4 MG/ML VIAL IVPUSH ONE (13:04)
[2024-08-26] MEDS ORDERED: HYDROmorphone HCL 2 MG TABLET PO PRN (13:48)
[2024-08-26] MEDS ORDERED: ONDANSETRON 4 MG/2 ML VIAL IVPUSH PRN (13:48)
[2024-08-26 15:08] VITALS: BMI 39.2
[2024-08-26] MEDS: INSULIN ASPART SLIDING SCALE (NOVOLOG) 1 VIAL SQ SCH (16:49)
[2024-08-26] MEDS: KETOROLAC TROMETHAMINE 30 MG/1 ML VIAL IVPUSH PRN (16:54)
[2024-08-26] MEDS: SODIUM CHLORIDE 1,000 ML IV SCH (18:40)
[2024-08-26] MEDS: PANTOPRAZOLE SODIUM 40 MG VIAL IVPUSH SCH (18:50)
[2024-08-26 20:18] VITALS: RESP 18
[2024-08-26] MEDS: SUCRALFATE 1 GM/10 ML UNIT DOSE CUPS PO SCH (21:18)
[2024-08-26] MEDS: ROSUVASTATIN CA 20 MG TABLET PO SCH (21:18)
[2024-08-26] MEDS: ACETAMINOPHEN 1000 MG/100 ML BAG IVPB PRN (21:19)
[2024-08-26] MEDS: ZOLPIDEM TARTRATE 5 MG TABLET PO PRN (22:46)
[2024-08-27] MEDS: ENOXAPARIN NA (PORCINE) 40 MG/0.4 ML DISP.SYRIN SQ SCH (09:19)
[2024-08-27] MEDS: NIFEdipine E.R. 30 MG TABLET PO SCH (09:19)
[2024-08-27] MEDS: SERTRALINE HCL 50 MG TABLET (FP) PO SCH (09:19)
[2024-08-27] MEDS: ASPIRIN 81 MG CHEWABLE TABLETS PO SCH (09:19)
[2024-08-27] MEDS: METOCLOPRAMIDE HCL INJECTION 10 MG/2 ML VIAL IVPUSH PRN (09:19)
[2024-08-27 09:28] LABS: ALBUMIN 3.3 g/dl (3.4-5.0); BILIRUBIN,TOTAL 0.5 mg/dl (0.2-1); CALCIUM 9.3 mg/dl (8.5-10.1); CREATININE 0.8 mg/dl (0.6-1.3); MAGNESIUM 1.9 mg/dL (1.8-2.4); PHOSPHOROUS 4.8 (2.5-4.9); POTASSIUM 4.6 mmol/L (3.5-5.1); TOT PROT 6.6 g/dl (6.4-8.2)
[2024-08-27 10:34] LABS: BASO % 0.6 % (0-2.0); HEMATOCRIT 40.1 % (32.4-45.2); HEMOGLOBIN 13.5 GM/dL (10.7-15.3); LYMPH % 41.4 % (8-40); MCH 29.7 pg (25.7-33.7); MCHC 33.7 g/dl (32.0-36.0); MEAN CELL VOLUME 88.3 fl (80-96); MEAN PLT VOLUME 8.7 fl (7.5-11.1); MONO % 10.5 % (3.8-10.2); NEUT % 45.5 % (42.8-82.8); PLATELET COUNT 211 10^3/uL (134-434); RBC 4.54 M/mm3 (3.60-5.2); RDW 13.8 % (11.6-15.6); WHITE BLOOD COUNT 5.2 K/mm3 (4.0-10.0)
[2024-08-28] MEDS: DOCUSATE SODIUM 100 MG CAPSULE (FP) PO SCH (08:05)
[2024-08-28 08:41] LABS: HEMATOCRIT 41.6 % (32.4-45.2); HEMOGLOBIN 13.5 G/dL (10.7-15.3); MCH 29.3 pg (25.7-33.7); MCHC 32.4 g/dl (32.0-36.0); MEAN CELL VOLUME 90.2 fl (80-96); PLATELET COUNT 171.7 10^3/uL (134-434); RBC 4.61 10^6/uL (3.60-5.2); RDW 13.8 % (11.6-15.6); WHITE BLOOD COUNT 4.7 10^3/uL (4.0-10.8)
[2024-08-28 09:08] LABS: CALCIUM 9.3 mg/dl (8.5-10.1); CREATININE 0.9 mg/dl (0.6-1.3); MAGNESIUM 1.9 mg/dL (1.8-2.4); PHOSPHOROUS 3.5 (2.5-4.9); POTASSIUM 4.5 mmol/L (3.5-5.1)
[2024-08-28] MEDS: METOCLOPRAMIDE HCL INJECTION 10 MG/2 ML VIAL IVPUSH SCH (11:35)
[2024-08-28] MEDS: SPIRONOLACTONE 25 MG TABLET PO SCH (14:07)
[2024-08-28] MEDS: SENNOSIDES 8.6MG TABLET (FP) PO SCH (22:15)
[2024-08-29 07:40] LABS: HEMATOCRIT 42.7 % (32.4-45.2); HEMOGLOBIN 13.8 G/dL (10.7-15.3); MCH 29.1 pg (25.7-33.7); MCHC 32.2 g/dl (32.0-36.0); MEAN CELL VOLUME 90.2 fl (80-96); MEAN PLT VOLUME 8.7 fl (7.5-11.1); PLATELET COUNT 159.6 10^3/uL (134-434); RBC 4.73 10^6/uL (3.60-5.2); RDW 13.8 % (11.6-15.6); WHITE BLOOD COUNT 5.3 10^3/uL (4.0-10.8)
[2024-08-29 08:59] LABS: CALCIUM 9.7 mg/dl (8.5-10.1); CREATININE 0.9 mg/dl (0.6-1.3); POTASSIUM 4.4 mmol/L (3.5-5.1)
[2024-08-29 10:21] VITALS: BP 127/68; PULSE 78; TEMP 98.2
== END 2024-08-29 13:41 | disposition home or self-care (01) ==
LOC: FER 09:21 → FM/S 12:45
PROVIDERS: ADMIT Internal Medicine; ATTEND Internal Medicine
PROC: 3E033NZ Introduction of Analgesics, Hypnotics, Sedatives into Peripheral Vein, Percutaneous Approach (ICD-10-PCS; principal; 2024-08-26)
PROC: 3E0333Z Introduction of Anti-inflammatory into Peripheral Vein, Percutaneous Approach (ICD-10-PCS; 2024-08-26)
PROC: 3E033GC Introduction of Other Therapeutic Substance into Peripheral Vein, Percutaneous Approach (ICD-10-PCS; 2024-08-26)
PROC: 3E0337Z Introduction of Electrolytic and Water Balance Substance into Peripheral Vein, Percutaneous Approach (ICD-10-PCS; 2024-08-26)
DX: K52.9 Noninfective gastroenteritis and colitis, unspecified (principal); I11.9 Hypertensive heart disease without heart failure; E78.5 Hyperlipidemia, unspecified; E11.9 Type 2 diabetes mellitus without complications; K29.50 Unspecified chronic gastritis without bleeding; J45.909 Unspecified asthma, uncomplicated; Z88.5 Allergy status to narcotic agent; Z88.8 Allergy status to other drugs, medicaments and biological substances; Z95.5 Presence of coronary angioplasty implant and graft
CPT/HCPCS: 36415; 74177-TC; 80048; 80053; 81003; 81015; 82962; 83690; 83735; 84100; 84484; 85025; 85027; 85651; 86140; 93005; 94640; 96360; 97116-GP; 97162-GP; 99285-25; G0378; J0131; Q9967